=== PATIENT | male | born 1955 | race Caucasian/White ===

== ENCOUNTER 2021-05-31 20:27 | Inpatient (IN) | payer MEDICARE ==
[~2021-05-31] VITALS: Ht 180.3 cm; Wt 78.0 kg
[2021-05-31] VITALS (9 sets, daily range): BP systolic 92–123; BP diastolic 63–92
--- NOTE | 2021-05-31 20:25 | NUR ---
The patient, CARLOS CRAMER, 66 y/o, M admitted by MELLISA FARRIS MD, was given written information regarding hospital policies, unit procedures and contact persons. Valuables were checked and documented. poc explained to pt, pt verbalized understanding. call light in place will cont to monitor pt status and safety. pmrn
--- NOTE | 2021-05-31 21:43 | PDOC1 ---
History and Physical Date of Admission Date of Admission DATE: 05/31/21 TIME: 21:39 History of Present Illness History of Present Illness Gutierrez is a 66-year-old male transferred here from [facility]. he went to the ER there today with worsening nonproductive cough and swelling of his ankles and feet. he has not felt himslef for about 2 weeks, with worsening cough and weakness, He went to a new doctor 3 days ago and had a CXR. today, he noted LE swelling and his neck veins were bounding rapidly when he looked at himself. Afib RVR ntoed in ER, cardizem gtt started, lasix given, he feels a little better, less cough less dyspnea. and he feels his LE edema is better. still irreg tachy on CArdizem [address] scan was also done there and noted PE seen, tx dose lovenox given, he does smoke he does drink on a daily basis Past Medical History Cardiovascular: No pertinent hx Pulmonary: No pertinent hx GI: Constipation Heme/Onc: No pertinent hx Musculoskeletal: Other Rheumatologic: No pertinent hx Infectious disease: No pertinent hx Endocrine: No pertinent hx Dermatology: No pertinent hx Past Surgical History Past Surgical History: No pertinent history Family History Family History: Diabetes Social History Smoke: 2 packs per day ALCOHOL: heavy (2 24 oz malt liquor daily) Drugs: Marijuana Current Medications Current Medications Current Medications Metoprolol Tartrate (Lopressor Vial) 5 mg PRN Q5MIN PRN IVP TACHYCARDIA; Start 05/31/21 at 21:45; Status UNV Digoxin (Lanoxin) 250 mcg 1X ONCE IV ; Start 05/31/21 at 21:45; Stop 05/31/21 at 21:46; Status UNV Digoxin (Lanoxin) 125 mcg DAILY PO ; Start 06/01/21 at 09:00; Status UNV Enoxaparin Sodium (Lovenox Per Pharmacy Treatment Dosing) 1 each PRN DAILY PRN MC SEE COMMENTS; Start 05/31/21 at 21:45; Status UNV Nicotine (Nicoderm Cq 21mg) 1 patch PRN DAILY PRN TD SMOKING CESSATION; Start 05/31/21 at 21:45; Status UNV ROS General: YES: Fatigue; No: Chills, Night Sweats, Malaise, Appetite, Other PSYCHOLOGICAL ROS: No: Anxiety, Behavioral Disorder, Concentration difficultie, Decreased libido, Depression, Disorientation, Hallucinations, Hostility, Irritablity, Memory difficulties, Mood Swings, Obsessive thoughts, Physical abuse, Sexual abuse, Sleep disturbances, Suicidal ideation, Other Eyes: No Blurry vision, No Decreased vision, No Double vision, No Dry eyes, No Excessive tearing, No Eye Pain, No Itchy Eyes, No Loss of vision, No Photophobia, No Scotomata, No Uses contacts, No Uses glasses, No Other HEENT: YES: Heacaches; No: Visual Changes, Hearing change, Nasal congestion, Nasal discharge, Oral lesions, Sinus pain, Sore Throat, Epistaxis, Sneezing, Snoring, Tinnitus, Vertigo, Vocal changes, Other Respiratory: YES: Cough, Shortness of breath, SOB with excertion; No: Hemoptysis, Orthopnea, Pleuritic Pain, Sputum Changes, Stridor, Tachypnea, Wheezing, Other Cardiovascular: yes Chest Pain, yes Palpitations; No Orthopnea, No Paroxysmal Noc. Dyspnea, No Edema, No Lt Headedness, No Other Gastrointestinal: Yes Nausea; No Vomiting, No Abdominal Pain, No Diarrhea, No Constipation, No Melena, No Hematochezia, No Other Genitourinary: No Dysuria, No Frequency, No Incontinence, No Hematuria, No Retention, No Discharge, No Urgency, No Pain, No Flank Pain, No Other, No , No , No , No , No , No , No Neurological: No Behavorial Changes, No Bowel/Bladder ControlChng, No Confusion, No Dizziness, No Gait Disturbance, No Headaches, No Impaired Coord/balance, No Memory Loss, No Numbness/Tingling, No Seizures, No Speech Problems, No Tremors, No Visual Changes, No Weakness, No Other Skin: Yes Dry Skin Physical Exam General: Alert, Cooperative, mild distress HEENT: Atraumatic, Mucous membr. moist/pink Lungs: Normal air movement Heart: no murmurs, irregularly irregular (tachy) Abdomen: Normal bowel sounds, Soft Extremities: Other (1+ BLE edema, left a little worse, some dystrophic nails, + clubbing of toenails) Skin: No significant lesion Neuro: Normal speech, Sensation intact, Cranial nerves 3-12 NL Psych/Mental Status: Mental status NL, Mood NL Vitals Vitals Vital Signs Date Time Temp Pulse Resp B/P (MAP) Pulse Ox O2 Delivery O2 Flow Rate FiO2 05/31/21 21:00 98.7 139 21 111/87 (95) Nasal Cannula 2.0 98.7 Labs Labs WBC 6.1, HGB 15.8, plt 137 NA 143, K 3.5, Cl 106, C02 22, BUN 15, Cr 0.9, glucose 88 mag 1.8 VTE Prophylaxis Ordered VTE Prophylaxis Devices: No VTE Pharmacological Prophylaxi: Yes Assessment/Plan Assessment/Plan acute hypoxic respiratory failure acute diastolic CHF atrial fibrillation with RVR, cardizem gtt, stil tachy, will add Metoprolol IV and IV dig, po in the AM, consult CV acute pulmonary embolism, Lovenox tx started at [facility] replete K+ and Mag tobacco use disorder, patch is PRN Alcohol overuse, vitamins given Justifications for Admission Other Justification MELLISA FARRIS MD May 31, 2021 21:43
[2021-05-31] MEDS ORDERED: NICOTINE 21MG PATCH. TD PRN (21:45)
[2021-05-31] MEDS ORDERED: MAGNESIUM SULFATE 4GM 100 ML IV ONE (23:00)
[2021-05-31] MEDS ORDERED: POTASSIUM CHLORIDE 20 MEQ TABLET.ER. PO ONE (23:00)
[2021-05-31] MEDS ORDERED: IV NORMAL SALINE 500ML BAG 500 ML IV ONE (23:00)
[2021-05-31] MEDS ORDERED: THIAMINE INJ 100 MG in IV DEXTROSE 5% 50 ML IV ONE (23:00)
[2021-05-31] MEDS ORDERED: DIGOXIN IV 500 MCG/2 ML AMPUL. IV ONE (23:00)
[2021-05-31] MEDS ORDERED: ANTI-COAG MONITOR BY PHARMACY. MC PRN (23:15)
[2021-06-01] VITALS (22 sets, daily range): BP systolic 78–131; BP diastolic 58–102
[2021-06-01 06:21] LABS: BASO # 0.1 x10^3/uL (0.0-0.2); BASO % 1 % (0-3); EOS # 0.1 x10^3/uL (0.0-0.7); EOS % 1 % (0-3); HEMATOCRIT 42.5 % (39.0-53.0); HEMOGLOBIN 13.9 g/dL (13.0-17.5); LYMPH # 0.8 x10^3/uL (1.0-4.8); LYMPH % 12 % (24-48); MEAN CORPUSCULAR HEMOGLOBIN 32 pg (25-35); MEAN CORPUSCULAR HGB CONC 33 g/dL (31-37); MEAN CORPUSCULAR VOLUME 98 fL (79-100); MONO % 15 % (0-9); NEUT # 4.8 x10^3/uL (1.8-7.7); NEUT % 71 % (31-73); PLATELET COUNT 129 x10^3/uL (140-400); RED BLOOD COUNT 4.32 x10^6/uL (4.30-5.70); WHITE BLOOD COUNT 6.7 x10^3/uL (4.0-11.0)
[2021-06-01 07:12] LABS: PROTHROMBIN TIME PATIENT 15.1 SEC (11.7-14.0)
[2021-06-01 07:33] LABS: ALBUMIN 3.2 g/dL (3.4-5.0); ALBUMIN/GLOBULIN RATIO 1.1 (1.0-1.7); CALCIUM 7.8 mg/dL (8.5-10.1); CHOLESTEROL/HDL RATIO 2.6; CREATININE 0.8 mg/dL (0.7-1.3); POTASSIUM 4.3 mmol/L (3.5-5.1); TOTAL BILIRUBIN 1.7 mg/dL (0.2-1.0)
[2021-06-01] MEDS: ASCORBIC ACID 1,000 MG TABLET PO SCH (07:55)
[2021-06-01] MEDS: VITAMIN B12,B9,B6 COMPLEX 1 TABLET. PO SCH (07:55)
[2021-06-01] MEDS: DIGOXIN 125 MCG TABLET. PO SCH (07:57)
--- NOTE | 2021-06-01 08:54 | PDOC2 ---
MARLY SINGH INSTRUCTIONAL TECHNOLOGY INSTRUCTOR 06/01/21 0854: CARDIAC CONSULT DATE OF CONSULT Date of Consult DATE: 06/01/21 TIME: 08:53 REASON FOR CONSULT Reason for Consult: AFIB with RVR REFERRING PHYSICIAN Referring Physician: Dr. iSngh SOURCE Source: Chart review, Patient HISTORY OF PRESENT ILLNESS HISTORY OF PRESENT ILLNESS This is a 66 yo male who presented to [facility] secondary to persistent cough and development of LE edema. Patient reports shortness of breath and cough have been present for the last couple of weeks. Cough seems to be worse at night when he lay down. Has been waking up in the night with difficulty breathing. This has progressively worsened. In the last 3-4 days, he developed LE edema. Saw his PCP 3 days ago and had CXR conducted. Was not aware of these results. Patient continued to not feel well and noted seeing his heart beat in his neck veins yesterday morning, which concerned him and prompted his arrival to the ED. Was noted in AFIB with RVR, which prompted this consult. Was transferred to [facility] for further evaluation and treatment. No prior h/o AFIB. Does have history of lymphoma and has underwent chemo and radiation therapy. PAST MEDICAL HISTORY Cardiovascular: HTN GI: GERD Heme/Onc: Cancer, Other (Lymphoma ) Musculoskeletal: Osteoarthritis PAST SURGICAL HISTORY Past Surgical History: Other (vasectomy ) FAMILY HISTORY Family History: Hypertension SOCIAL HISTORY Smoke: 1 pack per day (1-2 PPD) ALCOHOL: heavy Drugs: Marijuana Lives: with Family CURRENT MEDICATIONS CURRENT MEDICATIONS Current Medications Medications (Trade) Dose Ordered Sig/Handy Route PRN Reason Start Time Stop Time Status Last Admin Dose Admin Digoxin (Lanoxin) 250 mcg 1X ONCE IV 05/31/21 23:00 05/31/21 23:01 DC 05/31/21 23:07 Digoxin (Lanoxin) 125 mcg DAILY PO 06/01/21 09:00 06/01/21 07:57 Magnesium Sulfate 100 ml @ 25 mls/hr 1X ONCE IV 05/31/21 23:00 06/01/21 02:59 DC 05/31/21 23:44 Potassium Chloride (Klor-Con) 40 meq 1X ONCE PO 05/31/21 23:00 05/31/21 23:01 DC 05/31/21 23:05 Diltiazem HCl 125 mg/Sodium Chloride 125 ml @ 5 mls/hr CONT PRN IV PER PROTOCOL 05/31/21 22:00 06/01/21 08:28 Thiamine HCl 100 mg/Dextrose 51 ml @ 102 mls/hr 1X ONCE IV 05/31/21 23:00 05/31/21 23:29 DC 05/31/21 23:56 Vitamin B Complex (Folbic Tablet) 1 tab DAILY PO 06/01/21 09:00 06/01/21 07:55 Ascorbic Acid (Vitamin C) 1,000 mg DAILY PO 06/01/21 09:00 06/01/21 07:55 Sodium Chloride 500 ml @ 500 mls/hr 1X ONCE IV 05/31/21 23:00 05/31/21 23:59 DC 05/31/21 23:00 Enoxaparin Sodium (Lovenox 80mg Syringe) 80 mg Q12HR SQ 06/01/21 00:00 06/01/21 07:56 Info (Anti-Coagulation Monitoring By Pharmacy) 1 each PRN DAILY PRN MC PER PROTOCOL 05/31/21 23:15 06/01/21 01:18 ALLERGIES ALLERGIES: Coded Allergies: No Known Allergies (Verified Allergy, Unknown, 05/31/21) ROS Review of System 14 point ROS conducted with pertinent positives noted above in hPI PHYSICAL EXAM General: Alert, Oriented X3, Cooperative, mild distress HEENT: Atraumatic Lungs: Other (diminished throughout) Heart: Other (IRRR; tele AFIB, rate intermittently elevated ) Abdomen: Soft Extremities: Other (1+ bilateral LE edema ) Skin: No significant lesion Neuro: Normal speech, Sensation intact Psych/Mental Status: Mental status NL, Mood NL MUSCULOSKELETAL: Osteoarthritic changes both hands VITALS/I&O VITALS/I&O: Vital Signs Date Time Temp Pulse Resp B/P (MAP) Pulse Ox O2 Delivery O2 Flow Rate FiO2 06/01/21 07:57 127 06/01/21 07:00 98.0 20 110/90 (97) 91 Nasal Cannula 4.0 98.0 I & O 05/31/21 05/31/21 06/01/21 15:00 23:00 07:00 Intake Total 1601 ml Output Total 600 ml Balance 1001 ml LABS Lab: Laboratory Tests Test 06/01/21 04:10 06/01/21 04:15 White Blood Count 6.7 x10^3/uL (4.0-11.0) Red Blood Count 4.32 x10^6/uL (4.30-5.70) Hemoglobin 13.9 g/dL (13.0-17.5) Hematocrit 42.5 % (39.0-53.0) Mean Corpuscular Volume 98 fL (79-100) Mean Corpuscular Hemoglobin 32 pg (25-35) Mean Corpuscular Hemoglobin Concent 33 g/dL (31-37) Red Cell Distribution Width 14.0 % (11.5-14.5) Platelet Count 129 x10^3/uL (140-400) L Neutrophils (%) (Auto) 71 % (31-73) Lymphocytes (%) (Auto) 12 % (24-48) L Monocytes (%) (Auto) 15 % (0-9) H Eosinophils (%) (Auto) 1 % (0-3) Basophils (%) (Auto) 1 % (0-3) Neutrophils # (Auto) 4.8 x10^3/uL (1.8-7.7) Lymphocytes # (Auto) 0.8 x10^3/uL (1.0-4.8) L Monocytes # (Auto) 1.0 x10^3/uL (0.0-1.1) Eosinophils # (Auto) 0.1 x10^3/uL (0.0-0.7) Basophils # (Auto) 0.1 x10^3/uL (0.0-0.2) Prothrombin Time 15.1 SEC (11.7-14.0) H Prothrombin Time INR 1.2 (0.8-1.1) H Sodium Level 144 mmol/L (136-145) Potassium Level 4.3 mmol/L (3.5-5.1) Chloride Level 108 mmol/L (98-107) H Carbon Dioxide Level 22 mmol/L (21-32) Anion Gap 14 (6-14) Blood Urea Nitrogen 11 mg/dL (8-26) Creatinine 0.8 mg/dL (0.7-1.3) Estimated GFR (Cockcroft-Gault) 97.0 BUN/Creatinine Ratio 14 (6-20) Glucose Level 99 mg/dL (70-99) Calcium Level 7.8 mg/dL (8.5-10.1) L Total Bilirubin 1.7 mg/dL (0.2-1.0) H Aspartate Amino Transferase (AST) 49 U/L (15-37) H Alanine Aminotransferase (ALT) 88 U/L (16-63) H Alkaline Phosphatase 85 U/L (46-116) Total Protein 6.0 g/dL (6.4-8.2) L Albumin 3.2 g/dL (3.4-5.0) L Albumin/Globulin Ratio 1.1 (1.0-1.7) Triglycerides Level 64 mg/dL (0-150) Cholesterol Level 125 mg/dL (0-200) LDL Cholesterol, Calculated 63 mg/dL (0-100) VLDL Cholesterol, Calculated 13 mg/dL (0-40) Non-HDL Cholesterol Calculated 76 mg/dL (0-129) HDL Cholesterol 49 mg/dL (40-60) Cholesterol/HDL Ratio 2.6 Laboratory Tests 06/01/21 04:10 Laboratory Tests 06/01/21 04:15 IMAGES IMAGES Chest CTA Date 05/31/21 1. Linear nonocclusive basilar right lower lobe pulmonary artery embolus, suspected to be a chronic embolus. No occlusive or large pulmonary artery emboli. 2. Moderate right and mild left pleural effusions with mild passive atelectasis and volume loss of the dependent lower lobes. 3. Adenopathy in the mediastinum, left lower neck and left axilla presumably representing the patient's lymphoma. 4. Paraseptal emphysema of the upper lobes. There is asymmetric right apical bullous emphysema, underlying this emphysema there is a linear triangular parenchymal density measuring 3 x 3 x 1 cm this could represent asymmetric scarring versus a scarlike lung adenocarcinoma. Separate there are small solid nodules at the lung bases measuring up to 4 mm in size. Consider further assess ment with PET imaging versus needle biopsy, secondarily [address] chest follow- up could be considered, for the right apical lesion. 5. 1 cm lytic lesion of the T11 thoracic vertebra is indeterminate. 6. Mild free fluid right upper quadrant abdomen. ASSESSMENT/PLAN ASSESSMENT/PLAN 1. New onset AFIB with RVR; on Cardizem gtt. Digoxin added 2. Acute on chronic CHF, with possible systolic dysfunction 3. Hypertension; low end on Cardizem gtt. 4. H/o lymphoma; s/p chemo/radiation 5. Abnormal CTA; evidence of PE, right lung nodule. pulmonary consulted 6. Elevated LFT's 7. Thrombocytopenia 8. ETOH misuse 9. Suspected COPD with long-standing h/o tobaccoism Recommendations TSH, Lipids Mild diuresis Echo to assess LV systolic function Start metoprolol for rate control Titrate off Cardizem gtt as able Continue full-dose anticoagulation therapy with Lovenox. Transition to NOAC upon discharge Outpatient ischemic evaluation Probable outpatient CV if patient remains in AFIB PRAVIN SANCHEZ MD 06/01/21 1524: CARDIAC CONSULT ASSESSMENT/PLAN ASSESSMENT/PLAN Patient seen and examined. Agree with DRY CLEANER HAND's assessment and plan. Atrial fibrillation, newly diagnosed, heart rate better controlled since admission. Titrate Cardizem off and start metoprolol for rate control. Continue Lovenox for now and change to Eliquis for stroke prophylaxis prior to discharge Acute on chronic probably diastolic heart failure better compensated Check 2D echo to assess LV systolic function Consider ischemic evaluation as an outpatient Thank you for your consultation MARLY SINGH APRN Jun 01, 2021 08:54 PRAVIN SANCHEZ MD Jun 01, 2021 15:24
[2021-06-01] MEDS ORDERED: FLU VACC QUAD 21-22 (6MOS+) PF 0.5 ML SYRINGE. VAX IM ONE (09:00)
[2021-06-01] MEDS: METOPROLOL TART IMMED RELEASE 25 MG TABLET. PO SCH ×2 (10:30→19:59)
--- NOTE | 2021-06-01 10:40 | NUR ---
NURSING PT OFFERED FLU VACCINE PER PROTOCOL, REFUSED. EDUCATION PROVIDED, PT MAINTAINED DELICNATION.
--- NOTE | 2021-06-01 12:00 | NUR ---
SS following for discharge planning. SS reviewed pt chart and discussed with pt RN. Pt is from home and is currently requiring oxygen at four liters nasal canula. Cardiology and Pulmonology consulted. ECHO ordered. SS will continue to follow for discharge planning.
--- NOTE | 2021-06-01 12:36 | PDOC ---
[employer] PROGRESS NOTE Date of Service DOS: DATE: 06/01/21 TIME: 12:23 Chief Complaint Chief Complaint Acute hypoxic respiratory failure Acute diastolic CHF Atrial fibrillation with RVR, cardizem gtt, stil tachy, will add Metoprolol IV and IV dig, po now Acute/chronic? pulmonary embolism, Lovenox tx started at [facility] Pleural effusion - IR consulted for thoracentesis, would prefer holding therapeutic anticoagulation for treatment replete K+ and Mag tobacco use disorder, patch is PRN Alcohol overuse, vitamins given Thrombocytopenia History of Present Illness History of Present Illness Mr Paredes is a 66 yo male w/ PMHx lymphoma s/o chemo, radiation who presented to [facility] in [place], [place] c/o persistent cough and development of LE edema. Reports associated orthopnea for the last 2 weeks. He noted seeing his right neck veins fluttering which concerned him and was noted in AFIB with RVR. Underwent CTPA concerning for right pleural effusion and acute possibly chronic pulmonary embolism nonocclusive right basilar pulmonary artery and mediastinal adenopathy and left lower neck and axilla as well as bilateral emphysema and 3 x 3 x 1 cm right apical density as well as small basilar nodules 4 mm and a 1 cm T11 thoracic vertebral potential lytic lesion and right upper quadrant free fluid. No clear signs of right heart strain. No prior h/o AFIB. Does have history of lymphoma and has underwent chemo and radiation therapy. Was given therapeutic Lovenox replace magnesium and transferred to [facility] for further care and pulmonology and cardiology consultation. 06/01: Seen bedside is dyspneic and tachycardic. Was transitioned off diltiazem gtt. to oral metoprolol and oral digoxin. Discussed with interventional radiology they would prefer to delay thoracentesis on right due to recent therapeutic Lovenox administration. Patient is wondering when he will be able to go home but notes he is very dyspneic with minimal exertion. Vitals/I&O Vitals/I&O: Vital Signs Date Time Temp Pulse Resp B/P (MAP) Pulse Ox O2 Delivery O2 Flow Rate FiO2 06/01/21 11:00 97.5 110 20 119/96 (104) 90 Nasal Cannula 4.0 97.5 I & O 05/31/21 05/31/21 06/01/21 15:00 23:00 07:00 Intake Total 1601 ml Output Total 600 ml Balance 1001 ml Physical Exam General: Alert, Cooperative, mild distress Abdomen: Normal bowel sounds, Soft Extremities: Other (1+ BLE edema, left a little worse, some dystrophic nails, + clubbing of toenails) Skin: No significant lesion Labs Labs: Laboratory Tests Test 06/01/21 04:10 06/01/21 04:15 White Blood Count 6.7 x10^3/uL (4.0-11.0) Red Blood Count 4.32 x10^6/uL (4.30-5.70) Hemoglobin 13.9 g/dL (13.0-17.5) Hematocrit 42.5 % (39.0-53.0) Mean Corpuscular Volume 98 fL (79-100) Mean Corpuscular Hemoglobin 32 pg (25-35) Mean Corpuscular Hemoglobin Concent 33 g/dL (31-37) Red Cell Distribution Width 14.0 % (11.5-14.5) Platelet Count 129 x10^3/uL (140-400) Neutrophils (%) (Auto) 71 % (31-73) Lymphocytes (%) (Auto) 12 % (24-48) Monocytes (%) (Auto) 15 % (0-9) Eosinophils (%) (Auto) 1 % (0-3) Basophils (%) (Auto) 1 % (0-3) Neutrophils # (Auto) 4.8 x10^3/uL (1.8-7.7) Lymphocytes # (Auto) 0.8 x10^3/uL (1.0-4.8) Monocytes # (Auto) 1.0 x10^3/uL (0.0-1.1) Eosinophils # (Auto) 0.1 x10^3/uL (0.0-0.7) Basophils # (Auto) 0.1 x10^3/uL (0.0-0.2) Prothrombin Time 15.1 SEC (11.7-14.0) Prothromb Time International Ratio 1.2 (0.8-1.1) Sodium Level 144 mmol/L (136-145) Potassium Level 4.3 mmol/L (3.5-5.1) Chloride Level 108 mmol/L (98-107) Carbon Dioxide Level 22 mmol/L (21-32) Anion Gap 14 (6-14) Blood Urea Nitrogen 11 mg/dL (8-26) Creatinine 0.8 mg/dL (0.7-1.3) Estimated GFR (Cockcroft-Gault) 97.0 BUN/Creatinine Ratio 14 (6-20) Glucose Level 99 mg/dL (70-99) Calcium Level 7.8 mg/dL (8.5-10.1) Total Bilirubin 1.7 mg/dL (0.2-1.0) Aspartate Amino Transf (AST/SGOT) 49 U/L (15-37) Alanine Aminotransferase (ALT/SGPT) 88 U/L (16-63) Alkaline Phosphatase 85 U/L (46-116) Total Protein 6.0 g/dL (6.4-8.2) Albumin 3.2 g/dL (3.4-5.0) Albumin/Globulin Ratio 1.1 (1.0-1.7) Triglycerides Level 64 mg/dL (0-150) Cholesterol Level 125 mg/dL (0-200) LDL Cholesterol, Calculated 63 mg/dL (0-100) VLDL Cholesterol, Calculated 13 mg/dL (0-40) Non-HDL Cholesterol Calculated 76 mg/dL (0-129) HDL Cholesterol 49 mg/dL (40-60) Cholesterol/HDL Ratio 2.6 Thyroid Stimulating Hormone (TSH) 2.984 uIU/mL (0.358-3.74) Comment Review of Relevant I have reviewed the following items jesse (where applicable) has been applied. Medications: Current Medications Medications (Trade) Dose Ordered Sig/Handy Route PRN Reason Start Time Stop Time Status Last Admin Dose Admin Digoxin (Lanoxin) 250 mcg 1X ONCE IV 05/31/21 23:00 05/31/21 23:01 DC 05/31/21 23:07 Digoxin (Lanoxin) 125 mcg DAILY PO 06/01/21 09:00 06/01/21 07:57 Magnesium Sulfate 100 ml @ 25 mls/hr 1X ONCE IV 05/31/21 23:00 06/01/21 02:59 DC 05/31/21 23:44 Potassium Chloride (Klor-Con) 40 meq 1X ONCE PO 05/31/21 23:00 05/31/21 23:01 DC 05/31/21 23:05 Diltiazem HCl 125 mg/Sodium Chloride 125 ml @ 5 mls/hr CONT PRN IV PER PROTOCOL 2/1/22 22:00 06/01/21 09:05 DC 06/01/21 08:28 Thiamine HCl 100 mg/Dextrose 51 ml @ 102 mls/hr 1X ONCE IV 05/31/21 23:00 05/31/21 23:29 DC 05/31/21 23:56 Vitamin B Complex (Folbic Tablet) 1 tab DAILY PO 06/01/21 09:00 06/01/21 07:55 Ascorbic Acid (Vitamin C) 1,000 mg DAILY PO 06/01/21 09:00 06/01/21 07:55 Sodium Chloride 500 ml @ 500 mls/hr 1X ONCE IV 05/31/21 23:00 05/31/21 23:59 DC 05/31/21 23:00 Enoxaparin Sodium (Lovenox 80mg Syringe) 80 mg Q12HR SQ 06/01/21 00:00 06/01/21 07:56 Info (Anti-Coagulation Monitoring By Pharmacy) 1 each PRN DAILY PRN MC PER PROTOCOL 05/31/21 23:15 06/01/21 01:18 Metoprolol Tartrate (Lopressor) 25 mg BID PO 06/01/21 10:00 06/01/21 10:30 Justifications for Admission Other Justification CLEMENTE BECKWITH MD Jun 01, 2021 12:36
[2021-06-01] MEDS ORDERED: FUROSEMIDE 40 MG/4 ML VIAL. IVP ONE (13:00)
[2021-06-01] MEDS ORDERED: METOPROLOL IV PUSH 5 MG/5 ML VIAL. IVP ONE (13:00)
--- NOTE | 2021-06-01 14:01 | PDOC ---
PULMONARY PROGRESS NOTES DATE: 06/01/21 TIME: 13:59 Vitals Vital Signs Date Time Temp Pulse Resp B/P (MAP) Pulse Ox O2 Delivery O2 Flow Rate FiO2 06/01/21 13:03 110 119/96 06/01/21 11:00 97.5 20 90 Nasal Cannula 4.0 97.5 Labs Laboratory Tests Test 06/01/21 04:10 06/01/21 04:15 White Blood Count 6.7 x10^3/uL (4.0-11.0) Red Blood Count 4.32 x10^6/uL (4.30-5.70) Hemoglobin 13.9 g/dL (13.0-17.5) Hematocrit 42.5 % (39.0-53.0) Mean Corpuscular Volume 98 fL (79-100) Mean Corpuscular Hemoglobin 32 pg (25-35) Mean Corpuscular Hemoglobin Concent 33 g/dL (31-37) Red Cell Distribution Width 14.0 % (11.5-14.5) Platelet Count 129 x10^3/uL (140-400) Neutrophils (%) (Auto) 71 % (31-73) Lymphocytes (%) (Auto) 12 % (24-48) Monocytes (%) (Auto) 15 % (0-9) Eosinophils (%) (Auto) 1 % (0-3) Basophils (%) (Auto) 1 % (0-3) Neutrophils # (Auto) 4.8 x10^3/uL (1.8-7.7) Lymphocytes # (Auto) 0.8 x10^3/uL (1.0-4.8) Monocytes # (Auto) 1.0 x10^3/uL (0.0-1.1) Eosinophils # (Auto) 0.1 x10^3/uL (0.0-0.7) Basophils # (Auto) 0.1 x10^3/uL (0.0-0.2) Prothrombin Time 15.1 SEC (11.7-14.0) Prothromb Time International Ratio 1.2 (0.8-1.1) Sodium Level 144 mmol/L (136-145) Potassium Level 4.3 mmol/L (3.5-5.1) Chloride Level 108 mmol/L (98-107) Carbon Dioxide Level 22 mmol/L (21-32) Anion Gap 14 (6-14) Blood Urea Nitrogen 11 mg/dL (8-26) Creatinine 0.8 mg/dL (0.7-1.3) Estimated GFR (Cockcroft-Gault) 97.0 BUN/Creatinine Ratio 14 (6-20) Glucose Level 99 mg/dL (70-99) Calcium Level 7.8 mg/dL (8.5-10.1) Total Bilirubin 1.7 mg/dL (0.2-1.0) Aspartate Amino Transf (AST/SGOT) 49 U/L (15-37) Alanine Aminotransferase (ALT/SGPT) 88 U/L (16-63) Alkaline Phosphatase 85 U/L (46-116) Total Protein 6.0 g/dL (6.4-8.2) Albumin 3.2 g/dL (3.4-5.0) Albumin/Globulin Ratio 1.1 (1.0-1.7) Triglycerides Level 64 mg/dL (0-150) Cholesterol Level 125 mg/dL (0-200) LDL Cholesterol, Calculated 63 mg/dL (0-100) VLDL Cholesterol, Calculated 13 mg/dL (0-40) Non-HDL Cholesterol Calculated 76 mg/dL (0-129) HDL Cholesterol 49 mg/dL (40-60) Cholesterol/HDL Ratio 2.6 Thyroid Stimulating Hormone (TSH) 2.984 uIU/mL (0.358-3.74) Laboratory Tests Test 06/01/21 04:10 06/01/21 04:15 White Blood Count 6.7 x10^3/uL (4.0-11.0) Red Blood Count 4.32 x10^6/uL (4.30-5.70) Hemoglobin 13.9 g/dL (13.0-17.5) Hematocrit 42.5 % (39.0-53.0) Mean Corpuscular Volume 98 fL (79-100) Mean Corpuscular Hemoglobin 32 pg (25-35) Mean Corpuscular Hemoglobin Concent 33 g/dL (31-37) Red Cell Distribution Width 14.0 % (11.5-14.5) Platelet Count 129 x10^3/uL (140-400) Neutrophils (%) (Auto) 71 % (31-73) Lymphocytes (%) (Auto) 12 % (24-48) Monocytes (%) (Auto) 15 % (0-9) Eosinophils (%) (Auto) 1 % (0-3) Basophils (%) (Auto) 1 % (0-3) Neutrophils # (Auto) 4.8 x10^3/uL (1.8-7.7) Lymphocytes # (Auto) 0.8 x10^3/uL (1.0-4.8) Monocytes # (Auto) 1.0 x10^3/uL (0.0-1.1) Eosinophils # (Auto) 0.1 x10^3/uL (0.0-0.7) Basophils # (Auto) 0.1 x10^3/uL (0.0-0.2) Prothrombin Time 15.1 SEC (11.7-14.0) Prothromb Time International Ratio 1.2 (0.8-1.1) Sodium Level 144 mmol/L (136-145) Potassium Level 4.3 mmol/L (3.5-5.1) Chloride Level 108 mmol/L (98-107) Carbon Dioxide Level 22 mmol/L (21-32) Anion Gap 14 (6-14) Blood Urea Nitrogen 11 mg/dL (8-26) Creatinine 0.8 mg/dL (0.7-1.3) Estimated GFR (Cockcroft-Gault) 97.0 BUN/Creatinine Ratio 14 (6-20) Glucose Level 99 mg/dL (70-99) Calcium Level 7.8 mg/dL (8.5-10.1) Total Bilirubin 1.7 mg/dL (0.2-1.0) Aspartate Amino Transf (AST/SGOT) 49 U/L (15-37) Alanine Aminotransferase (ALT/SGPT) 88 U/L (16-63) Alkaline Phosphatase 85 U/L (46-116) Total Protein 6.0 g/dL (6.4-8.2) Albumin 3.2 g/dL (3.4-5.0) Albumin/Globulin Ratio 1.1 (1.0-1.7) Triglycerides Level 64 mg/dL (0-150) Cholesterol Level 125 mg/dL (0-200) LDL Cholesterol, Calculated 63 mg/dL (0-100) VLDL Cholesterol, Calculated 13 mg/dL (0-40) Non-HDL Cholesterol Calculated 76 mg/dL (0-129) HDL Cholesterol 49 mg/dL (40-60) Cholesterol/HDL Ratio 2.6 Thyroid Stimulating Hormone (TSH) 2.984 uIU/mL (0.358-3.74) Impression . Full consult dictated hypoxemic respiratory failure multifactorial, acute exacerbation of COPD, A. fib with rapid ventricular response Possible diastolic heart failure Abnormal CT chest Proceed with thoracentesis Repeat CT chest as an outpatient, possible PET as an outpatient KARYNA BURT MD Jun 01, 2021 14:01
[2021-06-01] MEDS ORDERED: HEPARIN for IV BOLUS 10,000 UNIT/10 ML VIAL. IV PRN ×2 (15:30)
[2021-06-01] MEDS: HEPARIN 25,000UTS/250ML PREMIX 250 ML IV PRN (16:06)
--- NOTE | 2021-06-01 16:25 | NUR ---
NURSING HEPARIN GTT STARTER PER PHYSICIAN ORDER. DR BECKWITH SAID PT DID NOT NEED BOLUS, JUST TO START AT RECOMMENDED DOSE. SO, BOLUS HELD, STARTED AT 16U/KG/HR, OR 13.2 ML/HR.
--- NOTE | 2021-06-01 19:54 | CONS ---
DATE OF CONSULTATION: 06/01/2021 ATTENDING PHYSICIAN: Dr. Essie Singh. REASON FOR CONSULTATION: The patient is seen in Pulmonary consultation at the request of Dr. Singh for abnormal CT chest. HISTORY OF PRESENT ILLNESS: The patient is a 66-year-old that presented with increasing shortness of breath over the last 24 hours. It has been ongoing now for 2 weeks. He saw his PCP. The patient presented with mainly tachycardia, felt like he had heart racing. He was found to have AFib with rapid ventricular response. He was initially seen at [facility]. He underwent CT angiogram, which revealed a nonocclusive chronic clot in the right side. There was bilateral effusions, right greater than left. He had several nodules along with an ill-defined opacity in the right upper lobe. There were also some emphysematous changes. The patient continues to smoke. He wears no oxygen at home. He is using metered dose inhaler. Denies hemoptysis, fever, chills, night sweats. He is vaccinated for COVID-19. PAST MEDICAL HISTORY: Hypertension, gastroesophageal reflux, lymphoma, osteoarthritis, tobacco dependent and COPD, unknown FEV1. PAST SURGICAL HISTORY: Vasectomy. 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 He is currently smoking daily. He smokes marijuana. REVIEW OF SYSTEMS: As indicated above, otherwise a 10-point system was reviewed and negative. CURRENT MEDICATIONS: List was reviewed. He was given IV Cardizem. He is currently requiring digoxin, thiamine, Lovenox 80 q. 12, lorazepam p.r.n., metoprolol p.r.n. He is currently not on steroids. ALLERGIES: No known drug allergies. PHYSICAL EXAMINATION: GENERAL: The patient appeared to be older than stated age. VITAL SIGNS: Stable. O2 saturation currently on 4 liters 95%. HEENT: Eyes: The sclerae were nonicteric. NECK: Jugular venous distention was not elevated. No lymphadenopathy. CHEST: Full expansion. LUNGS: Poor airway flow with expiratory wheeze. CARDIOVASCULAR: Regular rate and rhythm with S1, S2. No S3. ABDOMEN: Soft. EXTREMITIES: No clubbing, cyanosis, 1+ edema. NEUROLOGIC: The patient was awake, alert, following commands. A detailed neuro exam was not performed. LABORATORY DATA: Reviewed. Electrolytes were noted. BUN and creatinine were normal. AST and ALT were elevated. White count was normal. CT chest was reviewed, obtained at [facility]. There were several findings. There was a nonocclusive clot in the right lower lobe artery. There were bilateral effusions, right greater than left, mediastinal adenopathy. There was a left lower neck adenopathy and left axilla adenopathy, paraseptal emphysema. There was asymmetrical right apical bullous emphysematous change along with a parenchymal density. IMPRESSION: 1. Acute hypoxemic respiratory failure, multifactorial. 2. Acute exacerbation of chronic obstructive pulmonary disease. 3. Atrial fibrillation with rapid ventricular response. 4. Acute, suspected, diastolic heart failure. 5. Abnormal CT chest, revealing several findings as indicated above. 6. Linear triangular parenchymal density in the right upper lobe. 7. Multiple pulmonary nodules. 8. Adenopathy in the mediastinum, left lower neck and axilla, patient with previous history of lymphoma. 9. Abnormal liver function tests. PLAN: 1. Recommend thoracentesis. 2. Treat acute exacerbation of COPD with steroids, no need for antibiotics. 3. Nebulized treatments. 4. Follow Cardiology input. 5. Repeat CT chest in 2-3 months. 6. The patient instructed on the importance of discontinuing tobacco use. 7. Discontinue alcohol and marijuana. I do appreciate the privilege in sharing in the patient's care. JESUS DR: Ankit TID: [id number]
[2021-06-02] VITALS (10 sets, daily range): BP systolic 92–143; BP diastolic 75–90
[2021-06-02] MEDS: VITAMIN B12,B9,B6 COMPLEX 1 TABLET. PO SCH (07:39)
[2021-06-02] MEDS: DIGOXIN 125 MCG TABLET. PO SCH (07:39)
[2021-06-02] MEDS: ASCORBIC ACID 1,000 MG TABLET PO SCH (07:40)
[2021-06-02] MEDS: METOPROLOL TART IMMED RELEASE 25 MG TABLET. PO SCH (07:40)
[2021-06-02] MEDS: HEPARIN 25,000UTS/250ML PREMIX 250 ML IV PRN (07:41)
[2021-06-02] MEDS: METOPROLOL IV PUSH 5 MG/5 ML VIAL. IVP PRN ×3 (08:14→10:12)
--- NOTE | 2021-06-02 08:16 | PDOC ---
[employer] PROGRESS NOTE Date of Service DOS: DATE: 06/02/21 TIME: 08:11 Chief Complaint Chief Complaint Acute hypoxic respiratory failure Acute diastolic CHF Atrial fibrillation with RVR, cardizem gtt, stil tachy, will add Metoprolol IV and IV dig, po now Acute/chronic? pulmonary embolism, Lovenox tx started at [facility] Pleural effusion - IR consulted for thoracentesis, would prefer holding therapeutic anticoagulation for treatment replete K+ and Mag tobacco use disorder, patch is PRN Alcohol overuse, vitamins given Thrombocytopenia History of Present Illness History of Present Illness Mr Paredes is a 66 yo male w/ PMHx lymphoma s/o chemo, radiation who presented to [facility] in [place], [place] c/o persistent cough and development of LE edema. Reports associated orthopnea for the last 2 weeks. He noted seeing his right neck veins fluttering which concerned him and was noted in AFIB with RVR. Underwent CTPA concerning for right pleural effusion and acute possibly chronic pulmonary embolism nonocclusive right basilar pulmonary artery and mediastinal adenopathy and left lower neck and axilla as well as bilateral emphysema and 3 x 3 x 1 cm right apical density as well as small basilar nodules 4 mm and a 1 cm T11 thoracic vertebral potential lytic lesion and right upper quadrant free fluid. No clear signs of right heart strain. No prior h/o AFIB. Does have history of lymphoma and has underwent chemo and radiation therapy. Was given therapeutic Lovenox replace magnesium and transferred to [facility] for further care and pulmonology and cardiology consultation. 2/2: Seen bedside is dyspneic and tachycardic. Was transitioned off diltiazem gtt. to oral metoprolol and oral digoxin. Discussed with interventional radiology they would prefer to delay thoracentesis on right due to recent therapeutic Lovenox administration. Patient is wondering when he will be able to go home but notes he is very dyspneic with minimal exertion. 2/3: Overnight became more tachycardic. Still feeling short of breath. Orthopnea. On heparin gtt. plans for thoracentesis today. 5 metoprolol x1 now Vitals/I&O Vitals/I&O: Vital Signs Date Time Temp Pulse Resp B/P (MAP) Pulse Ox O2 Delivery O2 Flow Rate FiO2 06/02/21 07:40 144 111/90 06/02/21 07:35 97.6 20 91 Nasal Cannula 3.0 97.6 I & O 06/01/21 06/01/21 06/02/21 15:00 23:00 07:00 Intake Total 420 ml 100 ml Output Total 200 ml 400 ml 250 ml Balance 220 ml -300 ml -250 ml Physical Exam General: Alert, Oriented X3, Cooperative, mild distress Heart: Other Abdomen: Soft Extremities: Other Skin: No significant lesion Labs Labs: Laboratory Tests Test 06/01/21 21:55 06/02/21 05:00 Heparin Anti-Xa Act, Unfractionated 0.88 IU/mL (0.30-0.70) 0.41 IU/mL (0.30-0.70) Comment Review of Relevant I have reviewed the following items jesse (where applicable) has been applied. Medications: Current Medications Medications (Trade) Dose Ordered Sig/Handy Route PRN Reason Start Time Stop Time Status Last Admin Dose Admin Digoxin (Lanoxin) 125 mcg DAILY PO 06/01/21 09:00 06/02/21 07:39 Vitamin B Complex (Folbic Tablet) 1 tab DAILY PO 06/01/21 09:00 06/02/21 07:39 Ascorbic Acid (Vitamin C) 1,000 mg DAILY PO 06/01/21 09:00 06/02/21 07:40 Metoprolol Tartrate (Lopressor) 25 mg BID PO 06/01/21 10:00 06/02/21 07:40 Metoprolol Tartrate (Lopressor Vial) 5 mg 1X ONCE IVP 06/01/21 13:00 06/01/21 13:01 DC 06/01/21 13:03 Furosemide (Lasix) 40 mg 1X ONCE IVP 06/01/21 13:00 06/01/21 13:01 DC 06/01/21 13:02 Heparin Sodium/ Dextrose 250 ml @ 13.248 mls/ hr CONT PRN IV PER PROTOCOL 06/01/21 15:30 06/02/21 07:41 Justifications for Admission Other Justification CLEMENTE BECKWITH MD Jun 02, 2021 08:16
--- NOTE | 2021-06-02 09:30 | PDOC ---
PULMONARY PROGRESS NOTES DATE: 06/02/21 TIME: 09:29 Subjective PT FEELS BETTER LESS SOA Vitals Vital Signs Date Time Temp Pulse Resp B/P (MAP) Pulse Ox O2 Delivery O2 Flow Rate FiO2 06/02/21 08:35 140 120/93 06/02/21 07:35 97.6 20 91 Nasal Cannula 3.0 97.6 ROS: No Nausea, No Chest Pain, No Abdominal Pain, No Increase Cough Lungs: Wheezing Cardiovascular: S1 Abdomen: Soft, Non-tender Neuro Exam: Alert Extremities: No Edema Skin: Warm Labs Laboratory Tests Test 06/01/21 04:10 06/01/21 04:15 06/01/21 21:55 06/02/21 05:00 White Blood Count 6.7 x10^3/uL (4.0-11.0) Red Blood Count 4.32 x10^6/uL (4.30-5.70) Hemoglobin 13.9 g/dL (13.0-17.5) Hematocrit 42.5 % (39.0-53.0) Mean Corpuscular Volume 98 fL (79-100) Mean Corpuscular Hemoglobin 32 pg (25-35) Mean Corpuscular Hemoglobin Concent 33 g/dL (31-37) Red Cell Distribution Width 14.0 % (11.5-14.5) Platelet Count 129 x10^3/uL (140-400) Neutrophils (%) (Auto) 71 % (31-73) Lymphocytes (%) (Auto) 12 % (24-48) Monocytes (%) (Auto) 15 % (0-9) Eosinophils (%) (Auto) 1 % (0-3) Basophils (%) (Auto) 1 % (0-3) Neutrophils # (Auto) 4.8 x10^3/uL (1.8-7.7) Lymphocytes # (Auto) 0.8 x10^3/uL (1.0-4.8) Monocytes # (Auto) 1.0 x10^3/uL (0.0-1.1) Eosinophils # (Auto) 0.1 x10^3/uL (0.0-0.7) Basophils # (Auto) 0.1 x10^3/uL (0.0-0.2) Prothrombin Time 15.1 SEC (11.7-14.0) Prothromb Time International Ratio 1.2 (0.8-1.1) Sodium Level 144 mmol/L (136-145) Potassium Level 4.3 mmol/L (3.5-5.1) Chloride Level 108 mmol/L (98-107) Carbon Dioxide Level 22 mmol/L (21-32) Anion Gap 14 (6-14) Blood Urea Nitrogen 11 mg/dL (8-26) Creatinine 0.8 mg/dL (0.7-1.3) Estimated GFR (Cockcroft-Gault) 97.0 BUN/Creatinine Ratio 14 (6-20) Glucose Level 99 mg/dL (70-99) Calcium Level 7.8 mg/dL (8.5-10.1) Total Bilirubin 1.7 mg/dL (0.2-1.0) Aspartate Amino Transf (AST/SGOT) 49 U/L (15-37) Alanine Aminotransferase (ALT/SGPT) 88 U/L (16-63) Alkaline Phosphatase 85 U/L (46-116) Total Protein 6.0 g/dL (6.4-8.2) Albumin 3.2 g/dL (3.4-5.0) Albumin/Globulin Ratio 1.1 (1.0-1.7) Triglycerides Level 64 mg/dL (0-150) Cholesterol Level 125 mg/dL (0-200) LDL Cholesterol, Calculated 63 mg/dL (0-100) VLDL Cholesterol, Calculated 13 mg/dL (0-40) Non-HDL Cholesterol Calculated 76 mg/dL (0-129) HDL Cholesterol 49 mg/dL (40-60) Cholesterol/HDL Ratio 2.6 Thyroid Stimulating Hormone (TSH) 2.984 uIU/mL (0.358-3.74) Heparin Anti-Xa Act, Unfractionated 0.88 IU/mL (0.30-0.70) 0.41 IU/mL (0.30-0.70) Laboratory Tests Test 06/01/21 21:55 06/02/21 05:00 Heparin Anti-Xa Act, Unfractionated 0.88 IU/mL (0.30-0.70) 0.41 IU/mL (0.30-0.70) Impression . IMPRESSION: 1. Acute hypoxemic respiratory failure, multifactorial. 2. Acute exacerbation of chronic obstructive pulmonary disease. 3. Atrial fibrillation with rapid ventricular response. 4. Acute, suspected, diastolic heart failure. 5. Abnormal CT chest, revealing several findings as indicated above. 6. Linear triangular parenchymal density in the right upper lobe. 7. Multiple pulmonary nodules. 8. Adenopathy in the mediastinum, left lower neck and axilla, patient with previous history of lymphoma. 9. Abnormal liver function tests. Plan . FOLLOW UP ON PLEURAL FLUID CONTINUE THE SAME D/W REPEAT CT IN 3 MO PT IMPROVING PLAN: 1. Recommend thoracentesis. 2. Treat acute exacerbation of COPD with steroids, no need for antibiotics. 3. Nebulized treatments. 4. Follow Cardiology input. 5. Repeat CT chest in 2-3 months. 6. The patient instructed on the importance of discontinuing tobacco use. 7. Discontinue alcohol and marijuana. I do appreciate the privilege in sharing in the patient's care. KARYNA BURT MD Jun 02, 2021 09:29
--- NOTE | 2021-06-02 10:11 | PDOC ---
MARLY SINGH FAMILY INDEPENDENCE CASE MANAGER 06/02/21 1011: CARDIO Progress Notes Date and Time Date of Service 06/02/21 Time of Evaluation 1000 Subjective Subjective: No Chest Pain, Other (SOA improved ) Vitals Vitals Vital Signs Date Time Temp Pulse Resp B/P (MAP) Pulse Ox O2 Delivery O2 Flow Rate FiO2 06/02/21 08:35 140 120/93 06/02/21 07:35 97.6 20 91 Nasal Cannula 3.0 97.6 Weight Weight [ ] Input and Output Intake and Output Intake and Output 06/02/21 07:00 Intake Total 520 ml Output Total 850 ml Balance -330 ml Intake Oral 520 ml Output Urine Total 850 ml Laboratory Labs Laboratory Tests Test 06/01/21 21:55 06/02/21 05:00 Heparin Anti-Xa Act, Unfractionated 0.88 IU/mL (0.30-0.70) 0.41 IU/mL (0.30-0.70) Physical Exam HEENT: Neck Supple W Full Motion Chest: Symmetric LUNGS: Other (diminished ) Heart: irregularly irregular (AFIB, rate remains uncontrolled ) Abdomen: Soft N/T Extremities: Other (1+ bilateral LE edema ) Neurology: alert, oriented, follow commands Assessment Assessment 1. New onset AFIB with RVR; on metoprolol, digoxin for rate controlled. Received multiple doses of IV lopressor PRN. Rate remains uncontrolled 2. Acute on chronic systolic CHF; improved with diuresis. Echo shows cardiomyopathy with severe LV dysfunction. EF 30% 3. Acute respiratory failure; multifactorial with a/c CHF, AFIB with RVR, pleural effusion, and AECOPD. plans for thoracentesis today 4. Hypertension; controlled 5. H/o lymphoma; s/p chemo/radiation 6. Abnormal CTA; evidence of PE, right lung nodule. as per pulmonary 7. Elevated LFT's, mild 8. Thrombocytopenia 9. ETOH misuse 10. Suspected COPD with long-standing h/o tobaccoism Recommendations Continue metoprolol Will given additional dose of IV Dig now. If rate remains uncontrolled, with start amiodarone gtt and will plan for ADAMS guide CV tomorrow Monitor LFTs Resume anticoagulation therapy with heparin gtt s/p thoracentesis. Transition to Eliquis upon discharge Lasix therapy Convert metoprolol to Toprol Add ARB Given findings of significant LV dysfunction, recommend ischemic evaluation with cardiac catheterization. R/b/a discussed and patient and he is agreeable. NPO p MN Supportive care Justicifation of Admission Dx: Justifications for Admission: Justification of Admission Dx: Yes CHF: Cardiac Arrhythmias Comments: Cardiomyopathy, AFIB with RVR Acute on chronic systolic CHF PRAVIN SANCHEZ MD 06/02/211: CARDIO Progress Notes Assessment Assessment Patient seen and examined. Agree with TRAINING PROFESSIONAL's assessment and plan. Atrial fibrillation, newly diagnosed, heart rate better controlled since admission. Continue metoprolol for rate control. Continue Lovenox for now and change to Eliquis for stroke prophylaxis prior to discharge Acute on chronic probably diastolic heart failure better compensated 2D echo showed LVEF 30% Plan cardiac cath and [facility] CVn tomorrow Risks and benefits explained MARLY SINGH APRN Jun 02, 2021 10:11 PRAVIN SANCHEZ MD Jun 02, 2021 21:41
[2021-06-02] MEDS ORDERED: DIGOXIN IV 500 MCG/2 ML AMPUL. IV ONE (11:00)
--- NOTE | 2021-06-02 12:03 | NUR ---
SS following up with discharge planning. SS reviewed pt chart and discussed with pt RN. Pt is currently requiring oxygen at three liters nasal canula. Cardiology and Pulmonology following. Heparin drip. Thoracentesis today. SS will continue to follow for discharge planning.
--- NOTE | 2021-06-02 12:35 | CARD ---
MR#: [id number] Date of Study: 06/01/2021 Ordering Physician: MARLY SINGH, Referring Physician: MARLY SINGH, Tech: Yumiko Hooks, [facility] APPROVED REPORT EXAM: Two-dimensional and M-mode echocardiogram with Doppler and color Doppler. Other Information Quality : AverageHR: 143bpm Technically limited study due to Rapid heart rate INDICATION Atrial Fibrillation Congestive Heart Failure RISK FACTORS Hypertension Smoking 2D DIMENSIONS Left Atrium(2D)4.3 (1.6-4.0cm)IVSd1.0 (0.7-1.1cm) Aortic Root(2D)3.3 (2.0-3.7cm)LVDd5.1 (3.9-5.9cm) LVOT Diameter2.1 (1.8-2.4cm)PWd0.9 (0.7-1.1cm) LVDs3.3 (2.5-4.0cm)FS (%) 34.7 % SV77.0 mlLVEF(%)63.6 (>50%) Aortic Valve AoV Peak Kevin.107.3cm/sAoV VTI16.5cm AO Peak GR.4.6mmHgLVOT VTI 10.81cm AO Mean GR.3mmHg Mitral Valve MV E Kffcnbdv805.4cm/sMV DECEL [id number] MV A Imenpdjr81.6cm/sE/A Ratio2.8 TDI Lateral E' P. V4.70cm/sMedial E' P. V13.45cm/s E/Lateral E'25.0E/Medial E'8.7 Tricuspid Valve TR P. [id number]/sRAP [id number] TR Peak Gr.[id number] LEFT VENTRICLE The left ventricle is normal size. There is normal left ventricular wall thickness. The left ventricu lar systolic function is moderately to severely impaired. The Ejection Fraction is 30%. Diastology in determinate due to atrial fibrillation. RIGHT VENTRICLE The right ventricle is mildly dilated. There is normal right ventricular wall thickness. Systolic fun ction is mildly to moderately reduced. ATRIA The left atrium is borderline dilated. The right atrium is mildly dilated. The interatrial septum is intact with no evidence for an atrial septal defect or patent foramen ovale as noted on 2-D or Dopple r imaging. AORTIC VALVE The aortic valve is normal in structure and function. Doppler and Color Flow revealed no significant aortic regurgitation. There is no significant aortic valvular stenosis. Calculated aortic valve area is 2.62 cm2 with maximum pressure gradient of 5 mmHg and mean pressure gradient of 3 mmHg. MITRAL VALVE The mitral valve is normal in structure and function. There is no evidence of mitral valve prolapse. There is no mitral valve stenosis. Doppler and Color-flow revealed trace to mild mitral regurgitation . TRICUSPID VALVE The tricuspid valve is normal in structure and function. Doppler and Color Flow revealed moderate tri cuspid regurgitation with an estimated PAP of 44 mmHg. There is no tricuspid valve stenosis. PULMONIC VALVE The pulmonary valve is normal in structure and function. Doppler and Color Flow revealed trace pulmon ic valvular regurgitation. GREAT VESSELS The aortic root is normal in size. The IVC is dilated. PERICARDIAL EFFUSION There is no evidence of significant pericardial effusion. Critical Notification Critical Value: No <Conclusion> The left ventricular systolic function is moderately to severely impaired. The Ejection Fraction is 30%. Trace to mild mitral regurgitation. Moderate tricuspid regurgitation with an estimated PAP of 44 mmHg. There is no evidence of significant pericardial effusion. Signed by : Farrukh Wills, Electronically Approved : 06/02/2021 12:35:12
[2021-06-02] MEDS ORDERED: BENZOCAINE ONE 20% MUCOSAL SPRAY. MM (13:00)
[2021-06-02] MEDS ORDERED: LIDOCAINE 2% TOPICAL JELLY 5GM TUBE. TP ONE (13:00)
[2021-06-02] MEDS ORDERED: 0.9 % SODIUM CHLORIDE 10 ML DISP.SYRIN. IV PRN (13:00)
[2021-06-02] MEDS ORDERED: AMIODARONE 150 MG in IV DEXTROSE 5% 100ML 100 ML IV ONE (13:00)
[2021-06-02] MEDS ORDERED: LIDOCAINE 2% VISCOUS 15 ML SOLUTION. MM ONE (13:00)
[2021-06-02] MEDS: LOSARTAN POTASSIUM 25 MG TABLET. PO SCH (14:00)
[2021-06-02] MEDS: AMIODARONE 450 MG in IV DEXTROSE 5% 250 ML IV PRN ×2 (14:45→22:13)
[2021-06-02] MEDS: FUROSEMIDE 40 MG TABLET. PO SCH (15:08)
--- NOTE | 2021-06-02 15:19 | RAD ---
Right Thoracentesis 06/02/2021 1:51 PM Clinical History: Right pleural effusion. Technique: Relative benefits risks and alternatives were discussed with the patient and/or their rep resentative. Written informed consent was obtained. The patient was placed in seated position. A danielle eout procedure was performed. Sonographic assessment demonstrates a large pleural effusion. A site for skin entry was selected, and subsequently prepped and draped using sterile barrier technique. 1% lidocaine without epinepherine was administered for local anesthesia to the skin and subcutaenous tissues. A 5 Mohawk sheathed needle was passed into the pleural space. Clear yellow fluid was aspirated and t he catheter was connected to a vacuum. Approximately 1.5 liters of fluid were drained. The catheter w as removed and adequate hemostasis was obtained. A sterile dressing was applied. The patient tolerat ed the procedure well, without complications. Impression: Successful ultrasound guided thoracentesis with removal of1.5 liters of fluid. Electronically signed by: Joshua Verdugo MD (06/02/2021 3:17 PM) [id number]
[2021-06-02] MEDS ORDERED: METOPROLOL TART IMMED RELEASE 25 MG TABLET. PO SCH (21:00)
[2021-06-03] VITALS (12 sets, daily range): BP systolic 75–111; BP diastolic 51–90
[2021-06-03] MEDS ORDERED: IV NORMAL SALINE 500ML BAG 500 ML IV ONE (02:00)
--- NOTE | 2021-06-03 02:04 | NUR ---
PT BP 82/70, P-116, 85/72, P-112, 75/68, P-106 DR ELIZABETH NOTIFIED, ORDER GIVEN TO BOLUS WITH NS 500CC, IN HALF HOUR IF BP REMAINS LOW START DOPAMINE DO NOT TITRATE, CONT AMIODARONE GTT. WILL CONT TO MONITOR PT STATUS AND SAFETY. PMRN
[2021-06-03 04:08] LABS: BASO % 1 % (0-3); EOS % 1 % (0-3); HEMATOCRIT 43.7 % (39.0-53.0); HEMOGLOBIN 14.4 g/dL (13.0-17.5); LYMPH # 0.8 x10^3/uL (1.0-4.8); LYMPH % 11 % (24-48); MEAN CORPUSCULAR HEMOGLOBIN 32 pg (25-35); MEAN CORPUSCULAR HGB CONC 33 g/dL (31-37); MEAN CORPUSCULAR VOLUME 98 fL (79-100); MONO # 1.1 x10^3/uL (0.0-1.1); MONO % 14 % (0-9); NEUT % 75 % (31-73); PLATELET COUNT 118 x10^3/uL (140-400); RED BLOOD COUNT 4.45 x10^6/uL (4.30-5.70); RED CELL DISTRIBUTION WIDTH 14.1 % (11.5-14.5)
[2021-06-03 05:03] LABS: ALBUMIN 2.9 g/dL (3.4-5.0); ALBUMIN/GLOBULIN RATIO 0.9 (1.0-1.7); CALCIUM 7.5 mg/dL (8.5-10.1); CREATININE 0.8 mg/dL (0.7-1.3); POTASSIUM 3.5 mmol/L (3.5-5.1); TOTAL BILIRUBIN 1.9 mg/dL (0.2-1.0)
[2021-06-03] MEDS ORDERED: HYDROmorphone 2 MG/ML INJ. IVP PRN (06:00)
[2021-06-03] MEDS ORDERED: fentaNYL PF VIAL 100 MCG/2 ML VIAL IVP PRN ×2 (06:00)
[2021-06-03] MEDS ORDERED: IV RINGERS,LACTATED 1000ML 1,000 ML IV SCH (06:00)
[2021-06-03] MEDS ORDERED: MORPHINE SULFATE 2 MG/ML INJ. IVP PRN (06:00)
[2021-06-03] MEDS ORDERED: PROCHLORPERAZINE 10 MG/2 ML VIAL. IVP PRN (06:00)
[2021-06-03] MEDS: HEPARIN 25,000UTS/250ML PREMIX 250 ML IV PRN (06:30)
[2021-06-03] MEDS ORDERED: IOHEXOL 300 MG/ML 100ML VIAL. ONE (07:36)
[2021-06-03] MEDS ORDERED: LIDOCAINE 1% PF 2 ML VIAL. ONE (07:36)
--- NOTE | 2021-06-03 08:26 | PDOC ---
PULMONARY PROGRESS NOTES DATE: 06/03/21 TIME: 08:25 Subjective PT FEELS BETTER LESS SOA Vitals Vital Signs Date Time Temp Pulse Resp B/P (MAP) Pulse Ox O2 Delivery O2 Flow Rate FiO2 06/03/21 06:30 120 110/90 (97) 06/03/21 02:29 98.3 20 94 Nasal Cannula 4.0 98.3 ROS: No Nausea, No Chest Pain, No Abdominal Pain, No Increase Cough Lungs: Wheezing Cardiovascular: S1 Abdomen: Soft, Non-tender Neuro Exam: Alert Extremities: No Edema Skin: Warm Labs Laboratory Tests Test 06/01/21 21:55 06/02/21 05:00 06/02/21 10:50 06/02/21 13:50 Heparin Anti-Xa Act, Unfractionated 0.88 IU/mL (0.30-0.70) 0.41 IU/mL (0.30-0.70) 0.12 IU/mL (0.30-0.70) Body Fluid pH 7.55 Test 06/02/21 20:30 06/03/21 03:50 Heparin Anti-Xa Act, Unfractionated 0.21 IU/mL (0.30-0.70) 0.32 IU/mL (0.30-0.70) White Blood Count 8.0 x10^3/uL (4.0-11.0) Red Blood Count 4.45 x10^6/uL (4.30-5.70) Hemoglobin 14.4 g/dL (13.0-17.5) Hematocrit 43.7 % (39.0-53.0) Mean Corpuscular Volume 98 fL (79-100) Mean Corpuscular Hemoglobin 32 pg (25-35) Mean Corpuscular Hemoglobin Concent 33 g/dL (31-37) Red Cell Distribution Width 14.1 % (11.5-14.5) Platelet Count 118 x10^3/uL (140-400) Neutrophils (%) (Auto) 75 % (31-73) Lymphocytes (%) (Auto) 11 % (24-48) Monocytes (%) (Auto) 14 % (0-9) Eosinophils (%) (Auto) 1 % (0-3) Basophils (%) (Auto) 1 % (0-3) Neutrophils # (Auto) 6.0 x10^3/uL (1.8-7.7) Lymphocytes # (Auto) 0.8 x10^3/uL (1.0-4.8) Monocytes # (Auto) 1.1 x10^3/uL (0.0-1.1) Eosinophils # (Auto) 0.0 x10^3/uL (0.0-0.7) Basophils # (Auto) 0.0 x10^3/uL (0.0-0.2) Sodium Level 136 mmol/L (136-145) Potassium Level 3.5 mmol/L (3.5-5.1) Chloride Level 105 mmol/L (98-107) Carbon Dioxide Level 26 mmol/L (21-32) Anion Gap 5 (6-14) Blood Urea Nitrogen 15 mg/dL (8-26) Creatinine 0.8 mg/dL (0.7-1.3) Estimated GFR (Cockcroft-Gault) 97.0 BUN/Creatinine Ratio 19 (6-20) Glucose Level 123 mg/dL (70-99) Calcium Level 7.5 mg/dL (8.5-10.1) Total Bilirubin 1.9 mg/dL (0.2-1.0) Aspartate Amino Transf (AST/SGOT) 33 U/L (15-37) Alanine Aminotransferase (ALT/SGPT) 59 U/L (16-63) Alkaline Phosphatase 85 U/L (46-116) Total Protein 6.0 g/dL (6.4-8.2) Albumin 2.9 g/dL (3.4-5.0) Albumin/Globulin Ratio 0.9 (1.0-1.7) Laboratory Tests Test 06/02/21 10:50 06/02/21 13:50 06/02/21 20:30 06/03/21 03:50 Heparin Anti-Xa Act, Unfractionated 0.12 IU/mL (0.30-0.70) 0.21 IU/mL (0.30-0.70) 0.32 IU/mL (0.30-0.70) Body Fluid pH 7.55 White Blood Count 8.0 x10^3/uL (4.0-11.0) Red Blood Count 4.45 x10^6/uL (4.30-5.70) Hemoglobin 14.4 g/dL (13.0-17.5) Hematocrit 43.7 % (39.0-53.0) Mean Corpuscular Volume 98 fL (79-100) Mean Corpuscular Hemoglobin 32 pg (25-35) Mean Corpuscular Hemoglobin Concent 33 g/dL (31-37) Red Cell Distribution Width 14.1 % (11.5-14.5) Platelet Count 118 x10^3/uL (140-400) Neutrophils (%) (Auto) 75 % (31-73) Lymphocytes (%) (Auto) 11 % (24-48) Monocytes (%) (Auto) 14 % (0-9) Eosinophils (%) (Auto) 1 % (0-3) Basophils (%) (Auto) 1 % (0-3) Neutrophils # (Auto) 6.0 x10^3/uL (1.8-7.7) Lymphocytes # (Auto) 0.8 x10^3/uL (1.0-4.8) Monocytes # (Auto) 1.1 x10^3/uL (0.0-1.1) Eosinophils # (Auto) 0.0 x10^3/uL (0.0-0.7) Basophils # (Auto) 0.0 x10^3/uL (0.0-0.2) Sodium Level 136 mmol/L (136-145) Potassium Level 3.5 mmol/L (3.5-5.1) Chloride Level 105 mmol/L (98-107) Carbon Dioxide Level 26 mmol/L (21-32) Anion Gap 5 (6-14) Blood Urea Nitrogen 15 mg/dL (8-26) Creatinine 0.8 mg/dL (0.7-1.3) Estimated GFR (Cockcroft-Gault) 97.0 BUN/Creatinine Ratio 19 (6-20) Glucose Level 123 mg/dL (70-99) Calcium Level 7.5 mg/dL (8.5-10.1) Total Bilirubin 1.9 mg/dL (0.2-1.0) Aspartate Amino Transf (AST/SGOT) 33 U/L (15-37) Alanine Aminotransferase (ALT/SGPT) 59 U/L (16-63) Alkaline Phosphatase 85 U/L (46-116) Total Protein 6.0 g/dL (6.4-8.2) Albumin 2.9 g/dL (3.4-5.0) Albumin/Globulin Ratio 0.9 (1.0-1.7) Impression . IMPRESSION: 1. Acute hypoxemic respiratory failure, multifactorial. 2. Acute exacerbation of chronic obstructive pulmonary disease. 3. Atrial fibrillation with rapid ventricular response. Status post cardioversion 4. Acute, suspected, diastolic heart failure. Combination with systolic heart failure 5. Abnormal CT chest, revealing several findings as indicated above. 6. Linear triangular parenchymal density in the right upper lobe. 7. Multiple pulmonary nodules. 8. Adenopathy in the mediastinum, left lower neck and axilla, patient with previous history of lymphoma. 9. Abnormal liver function tests. 10. Transudate of effusion <Conclusion> The left ventricular systolic function is moderately diminished. The ejection fraction is 35%. Mild mitral regurgitation. Mild tricuspid regurgitation. There is no evidence of significant pericardial effusion. No intracardiac thrombus noted. Patient subsequently underwent successful external cardioversion, reported separately. Conclusions: Successful [facility] guided cardioversion of atrial fibrillation to sinus rhythm. Plan . Updated 06/03 Appreciate cardiology input Transudate of effusion, diuresis per cardiology Repeat CT chest in 2 to 3 months Continue empiric antibiotics and steroids DC tobacco or marijuana marijuana KARYNA BURT MD Jun 03, 2021 08:26
[2021-06-03] MEDS: LOSARTAN POTASSIUM 25 MG TABLET. PO SCH (08:38)
[2021-06-03] MEDS: ASCORBIC ACID 1,000 MG TABLET PO SCH (08:38)
[2021-06-03] MEDS: VITAMIN B12,B9,B6 COMPLEX 1 TABLET. PO SCH (08:38)
[2021-06-03] MEDS: DIGOXIN 125 MCG TABLET. PO SCH (08:39)
[2021-06-03] MEDS ORDERED: METOPROLOL SUCC 24HR ER 100 MG TAB.ER.24H. PO SCH (09:00)
[2021-06-03] MEDS ORDERED: NITROGLYCERIN 200 MCG/2 ML SYRINGE FOR CATH/VASC LAB. ONE (09:43)
[2021-06-03] MEDS ORDERED: VERAPAMIL 5 MG/2 ML VIAL. ONE (09:43)
[2021-06-03] MEDS ORDERED: fentaNYL PF VIAL 100 MCG/2 ML VIAL ONE (09:43)
[2021-06-03] MEDS ORDERED: HEPARIN for IV BOLUS 10,000 UNIT/10 ML VIAL. ONE (09:43)
[2021-06-03] MEDS ORDERED: MIDAZOLAM HCL/PF 2 MG/2 ML VIAL. ONE (09:43)
--- NOTE | 2021-06-03 10:32 | PDOC ---
MODERATE SEDATION ASSESSMENT RISKS/ALTERNATIVES Risks/Alternatives Risks and alternatives of this type of sedation and procedure discussed with: RISK/ALTERNATIVES: Patient H & P ON CHART H & P H & P on chart and reviewed for co-morbid conditions and appropriate labs. H&P ON CHART: Yes STATUS PREG STATUS ASSESSED: N/A MEDS/ALLERGIES REVIEWED Meds/Allergies Reviewed Medications and Allergies including time and route of recently administered narcotics and sedatives. MEDS/ALLERGIES REVIEWED: Yes ASA RATING ASA RATING: II AIRWAY ASSESSMENT Airway Assessment Airway patency, oral function limitations, presence of caps, crowns, dentures, partials, and ability to extend neck assessed. AIRWAY ASSESSMENT: Yes MALLAMPATI SCORE MALLAMPATI SCORE: II PRE-SEDATION ASSESSMENT PRE-SEDATION ASSESSMENT: Yes PRAVIN SANCHEZ MD Jun 03, 2021 10:32
[2021-06-03] MEDS ORDERED: BENZOCAINE ONE 20% MUCOSAL SPRAY. (10:37)
[2021-06-03] MEDS ORDERED: LIDOCAINE 1% PF 2 ML VIAL. INJ ONE (10:45)
[2021-06-03] MEDS ORDERED: NITROGLYCERIN 200 MCG/2 ML SYRINGE FOR CATH/VASC LAB. IART ONE (10:45)
[2021-06-03] MEDS ORDERED: BENZOCAINE ONE 20% MUCOSAL SPRAY. MM ×2 (10:45→11:00)
[2021-06-03] MEDS ORDERED: HEPARIN for IV BOLUS 10,000 UNIT/10 ML VIAL. IART ONE (10:45)
[2021-06-03] MEDS ORDERED: IOHEXOL 300 MG/ML 100ML VIAL. IART ONE (10:45)
[2021-06-03] MEDS ORDERED: MIDAZOLAM HCL/PF 2 MG/2 ML VIAL. IV ONE (10:45)
[2021-06-03] MEDS ORDERED: VERAPAMIL 5 MG/2 ML VIAL. IART ONE (10:45)
[2021-06-03] MEDS ORDERED: fentaNYL PF VIAL 100 MCG/2 ML VIAL IV ONE (10:45)
[2021-06-03] MEDS ORDERED: LIDOCAINE 2% TOPICAL JELLY 5GM TUBE. TP ONE (11:00)
[2021-06-03] MEDS ORDERED: LIDOCAINE 2% VISCOUS 15 ML SOLUTION. MM ONE (11:00)
[2021-06-03] MEDS ORDERED: CONTRAST GIVEN. MC PRN (11:00)
--- NOTE | 2021-06-03 11:38 | PDOC4 ---
Procedure Note Procedure: [facility] guided cardioversion Indications: Atrial fibrillation with difficult to control rapid ventricular rate Complications: None Procedural Details: An informed consent was obtained from patient. Anesthesiology team administered intravenous propofol for deep sedation. A transesophageal echocardiogram probe was inserted and standard tomographic images were obtained. Intracardiac throm bus was ruled out. Patient was then given 200 J of synchronized biphasic DC shock therapy with successful conversion of patient rhythm from atrial fibrillation to sinus rhythm. He was hemodynamically stable without any neurological deficit at the end of procedure. He tolerated the procedure well. Conclusions: Successful [facility] guided cardioversion of atrial fibrillation to sinus rhythm. PRAVIN SANCHEZ MD Jun 03, 2021 11:38
--- NOTE | 2021-06-03 11:42 | CARD ---
MR#: [id number] Date of Study: 06/03/2021 Ordering Physician: MARLY SINGH, Referring Physician: MARLY SINGH, Tech: Marianela Gardner APPROVED REPORT Technologist: Marianela Gardner Nurse: Irene Harrison RN Procedure(s) performed: Left heart catheterization and selective coronary angiography via right trans radial approach Heart Failure Class 4 fl time: 2.6 min dose: 36 gycm2 contrast: 62 ml moderate sedation: 20 MINS INDICATION The indication(s) include : Cardiomyopathy, acute on chronic systolic heart failure. [facility] Clinical Frailty Scale [facility] Clinical Frailty Scale: Mildly Frail Heart Failure Heart Failure: Yes If Yes, Newly Diagnosed: No If Yes, HF Type: Systolic CASE TECHNIQUE IV conscious sedation was used throughout procedure with appropriate monitoring and was performed in the presence of a registered nurse who was an independent trained observer other than the physician p erforming the procedure. During this case, Fluoroscopy and low osmolar contrast were used for imaging . Specimen(s) Removed: No Estimated Blood loss: 15 cc's. PROCEDURE NARRATIVE After explaining the risks, benefits and alternative options, informed consent was obtained from danny ent. Patient was brought to the cardiac Test Rack Operator and right wrist was prepped and draped in the usual fashion after confirming a positive modified Jhoan's test. Arterial access was obtained in the righ t radial artery and a 6 Albanian sheath was inserted. 6 Albanian Raul catheter was used to perform kb ective angiography of the left and right coronary arteries. LVEDP and transaortic gradients were scot sured. Left ventriculography was not performed since recent 2D echo showed LVEF 30%. Patient tolera marcia the procedure well. Hemostasis was achieved using TR band. There were no immediate complication s. The following findings were noted. FINDINGS 1. Hemodynamics: Left ventricular end-diastolic pressure of 9 mmHg. No pullback gradient across the aortic valve. 2. Left ventriculography: Normal left ventricle systolic function with ejection fraction estimated at 60%. No significant mitral regurgitation seen. 3. Coronary angiography: a. The left main coronary artery arose from the left sinus of Valsalva, was very short, gave rise to the left anterior descending and left circumflex arteries and did not show any significant stenosis. b. The left anterior descending artery did not show any significant stenosis. c. The left circumflex artery did not show any significant stenosis. d. The right coronary artery was a large and dominant vessel arising from the right sinus of Valsalv a that did not show any significant stenosis. Conclusion No significant coronary artery disease Recommendations Optimization of medical therapy for nonischemic cardiomyopathy, probably tachycardia mediated and rep eat 2D echo in 3 months. Signed by : Farrukh Wills, Electronically Approved : 06/03/2021 11:41:49
--- NOTE | 2021-06-03 11:47 | CARD ---
MR#: [id number] Date of Study: 06/03/2021 Ordering Physician: MARLY SINGH, Referring Physician: MARLY SINGH, Tech: Linda Sherman [facility] APPROVED REPORT EXAM: Transesophageal echocardiogram with color flow Doppler and Synchronized Cardioversion. INDICATION Atrial Fibrillation RISK FACTORS Hypertension Smoking Reason For Test : Rule out Intracardiac Thrombus. PROCEDURE Type of Sedation : General Anesthesia Sedation was administered by Anesthesia Dept. Sedation was achieved with Propofol 120 intravenously. Transesophageal probe was inserted and advanced into esophagus by Farrukh Wills MD. The [facility] was performed without complications. Throughout the procedure, the blood pressure, pulse oximetry, cardiac rhythm, and rate were monitored . LEFT VENTRICLE The left ventricle is normal size. There is normal left ventricular wall thickness. The left ventricu lar systolic function is moderately diminished. The ejection fraction is 35%. RIGHT VENTRICLE The right ventricle is normal size. There is normal right ventricular wall thickness. The right ventr icular systolic function is normal. ATRIA The left atrium is mildly dilated. The right atrium is mildly dilated. The interatrial septum is inta ct with no evidence for an atrial septal defect or patent foramen ovale as noted on 2-D or Doppler im aging. There is no thrombus noted in the left atrial appendage. AORTIC VALVE The aortic valve is normal in structure and function. Doppler and Color Flow revealed no significant aortic regurgitation. There is no significant aortic valvular stenosis. MITRAL VALVE The mitral valve is normal in structure and function. There is no evidence of mitral valve prolapse. There is no mitral valve stenosis. Doppler and Color-flow revealed mild mitral regurgitation. TRICUSPID VALVE The tricuspid valve is normal in structure and function. Doppler and Color Flow revealed mild tricusp id regurgitation. There is no tricuspid valve stenosis. PULMONIC VALVE The pulmonary valve is normal in structure and function. Doppler and Color Flow revealed trace pulmon ic valvular regurgitation. GREAT VESSELS The aortic root is normal in size. The ascending aorta is normal in size. PERICARDIAL EFFUSION There is no evidence of significant pericardial effusion. There is no pleural effusion. Critical Notification Critical Value: No <Conclusion> The left ventricular systolic function is moderately diminished. The ejection fraction is 35%. Mild mitral regurgitation. Mild tricuspid regurgitation. There is no evidence of significant pericardial effusion. No intracardiac thrombus noted. Patient subsequently underwent successful external cardioversion, reported separately. Signed by : Farrukh Wills, Electronically Approved : 06/03/2021 11:47:06
--- NOTE | 2021-06-03 12:02 | PDOC ---
[employer] PROGRESS NOTE Date of Service DOS: DATE: 06/03/21 TIME: 12:00 Chief Complaint Chief Complaint Acute hypoxic respiratory failure Acute diastolic CHF Atrial fibrillation with RVR, cardizem gtt, stil tachy, will add Metoprolol IV and IV dig, po now Acute/chronic? pulmonary embolism, Lovenox tx started at [facility] Pleural effusion - IR consulted for thoracentesis, would prefer holding therapeutic anticoagulation for treatment replete K+ and Mag tobacco use disorder, patch is PRN Alcohol overuse, vitamins given Thrombocytopenia History of Present Illness History of Present Illness Mr Paredes is a 66 yo male w/ PMHx lymphoma s/o chemo, radiation who presented to [facility] in [place], [place] c/o persistent cough and development of LE edema. Reports associated orthopnea for the last 2 weeks. He noted seeing his right neck veins fluttering which concerned him and was noted in AFIB with RVR. Underwent CTPA concerning for right pleural effusion and acute possibly chronic pulmonary embolism nonocclusive right basilar pulmonary artery and mediastinal adenopathy and left lower neck and axilla as well as bilateral emphysema and 3 x 3 x 1 cm right apical density as well as small basilar nodules 4 mm and a 1 cm T11 thoracic vertebral potential lytic lesion and right upper quadrant free fluid. No clear signs of right heart strain. No prior h/o AFIB. Does have history of lymphoma and has underwent chemo and radiation therapy. Was given therapeutic Lovenox replace magnesium and transferred to [facility] for further care and pulmonology and cardiology consultation. 2/2: Seen bedside is dyspneic and tachycardic. Was transitioned off diltiazem gtt. to oral metoprolol and oral digoxin. Discussed with interventional radiology they would prefer to delay thoracentesis on right due to recent therapeutic Lovenox administration. Patient is wondering when he will be able to go home but notes he is very dyspneic with minimal exertion. 2/3: Overnight became more tachycardic. Still feeling short of breath. Orthopnea. On heparin gtt. 1.5L thoracentesis today. 5 metoprolol x1 now 2/4: [place] relief after throat thoracentesis for several hours but when he laid down became very tachycardic and hypotensive now on dopamine gtt. started on amiodarone. To [facility] for cardioversion Vitals/I&O Vitals/I&O: Vital Signs Date Time Temp Pulse Resp B/P (MAP) Pulse Ox O2 Delivery O2 Flow Rate FiO2 06/03/21 11:45 Nasal Cannula 2 06/03/21 11:40 98 16 120/84 96 06/03/21 11:11 98.8 98.8 I & O 06/02/21 06/02/21 06/03/21 15:00 23:00 07:00 Intake Total 300 ml 0 ml Output Total 1200 ml 200 ml 150 ml Balance -900 ml -200 ml -150 ml Physical Exam General: Alert, Oriented X3, Cooperative, mild distress Heart: Other Lungs: Wheezing Abdomen: Soft Extremities: Other Skin: No significant lesion Labs Labs: Laboratory Tests Test 06/02/21 13:50 06/02/21 20:30 06/03/21 03:50 06/03/21 09:40 Body Fluid pH 7.55 Heparin Anti-Xa Act, Unfractionated 0.21 IU/mL (0.30-0.70) 0.32 IU/mL (0.30-0.70) 0.37 IU/mL (0.30-0.70) White Blood Count 8.0 x10^3/uL (4.0-11.0) Red Blood Count 4.45 x10^6/uL (4.30-5.70) Hemoglobin 14.4 g/dL (13.0-17.5) Hematocrit 43.7 % (39.0-53.0) Mean Corpuscular Volume 98 fL (79-100) Mean Corpuscular Hemoglobin 32 pg (25-35) Mean Corpuscular Hemoglobin Concent 33 g/dL (31-37) Red Cell Distribution Width 14.1 % (11.5-14.5) Platelet Count 118 x10^3/uL (140-400) Neutrophils (%) (Auto) 75 % (31-73) Lymphocytes (%) (Auto) 11 % (24-48) Monocytes (%) (Auto) 14 % (0-9) Eosinophils (%) (Auto) 1 % (0-3) Basophils (%) (Auto) 1 % (0-3) Neutrophils # (Auto) 6.0 x10^3/uL (1.8-7.7) Lymphocytes # (Auto) 0.8 x10^3/uL (1.0-4.8) Monocytes # (Auto) 1.1 x10^3/uL (0.0-1.1) Eosinophils # (Auto) 0.0 x10^3/uL (0.0-0.7) Basophils # (Auto) 0.0 x10^3/uL (0.0-0.2) Sodium Level 136 mmol/L (136-145) Potassium Level 3.5 mmol/L (3.5-5.1) Chloride Level 105 mmol/L (98-107) Carbon Dioxide Level 26 mmol/L (21-32) Anion Gap 5 (6-14) Blood Urea Nitrogen 15 mg/dL (8-26) Creatinine 0.8 mg/dL (0.7-1.3) Estimated GFR (Cockcroft-Gault) 97.0 BUN/Creatinine Ratio 19 (6-20) Glucose Level 123 mg/dL (70-99) Calcium Level 7.5 mg/dL (8.5-10.1) Total Bilirubin 1.9 mg/dL (0.2-1.0) Aspartate Amino Transf (AST/SGOT) 33 U/L (15-37) Alanine Aminotransferase (ALT/SGPT) 59 U/L (16-63) Alkaline Phosphatase 85 U/L (46-116) Total Protein 6.0 g/dL (6.4-8.2) Albumin 2.9 g/dL (3.4-5.0) Albumin/Globulin Ratio 0.9 (1.0-1.7) Comment Review of Relevant I have reviewed the following items jesse (where applicable) has been applied. Medications: Current Medications Medications (Trade) Dose Ordered Sig/Handy Route PRN Reason Start Time Stop Time Status Last Admin Dose Admin Amiodarone HCl 150 mg/Dextrose 103 ml @ 600 mls/hr 1X ONCE IV 06/02/21 13:00 06/02/21 13:17 DC 06/02/21 14:35 Amiodarone HCl 450 mg/Dextrose 259 ml @ 0 mls/hr CONT PRN IV SEE I/O RECORD 06/02/21 13:00 06/03/21 12:59 06/02/21 22:13 Metoprolol Tartrate (Lopressor) 50 mg BID PO 06/02/21 21:00 06/02/21 21:01 DC 06/02/21 21:00 Losartan Potassium (Cozaar) 25 mg DAILY PO 06/02/21 14:00 06/03/21 08:38 Furosemide (Lasix) 40 mg DAILY PO 06/02/21 14:00 06/02/21 15:08 Lidocaine HCl (Xylocaine 2% Topical 5gm Tube) 1 paulie 1X ONCE TP 06/03/21 11:00 06/03/21 11:01 DC 06/03/21 10:40 Sodium Chloride 500 ml @ 500 mls/hr 1X ONCE IV 06/03/21 02:00 06/03/21 02:59 DC 06/03/21 02:03 Dopamine HCl/ Dextrose 250 ml @ 15.244 mls/ hr CONT PRN IV SEE I/O RECORD 06/03/21 02:30 06/03/21 06:21 Nitroglycerin (Nitroglycerin) 200 mcg 1X ONCE IART 06/03/21 10:45 06/03/21 10:51 DC 06/03/21 10:15 Verapamil HCl (Verapamil) 2.5 mg 1X ONCE IART 06/03/21 10:45 06/03/21 10:51 DC 06/03/21 10:15 Heparin Sodium (Porcine) (Heparin Sodium) 2,500 unit 1X ONCE IART 06/03/21 10:45 06/03/21 10:51 DC 06/03/21 10:15 Heparin Sodium/ Sodium Chloride (HEPARIN for ARTERIAL LINE FLUSH) 1,000 unit 1X ONCE IART 06/03/21 10:45 06/03/21 10:51 DC 06/03/21 10:30 Midazolam HCl (Versed) 2 mg 1X ONCE IV 06/03/21 10:45 06/03/21 10:51 DC 06/03/21 10:15 Fentanyl Citrate (Fentanyl 2ml Vial) 50 mcg 1X ONCE IV 06/03/21 10:45 06/03/21 10:51 DC 06/03/21 10:15 Iohexol (Omnipaque 300 Mg/ml) 62 ml 1X ONCE IART 06/03/21 10:45 06/03/21 10:51 DC 06/03/21 10:35 Lidocaine HCl (Xylocaine-Mpf 1% 2ml Vial) 1 ml 1X ONCE INJ 06/03/21 10:45 06/03/21 10:51 DC 06/03/21 10:15 Benzocaine (Hurricaine One) 1 spray 1X ONCE MM 06/03/21 10:45 06/03/21 10:47 DC 06/03/21 10:40 Justifications for Admission Other Justification CLEMENTE BECKWITH MD Jun 03, 2021 12:02
--- NOTE | 2021-06-03 12:10 | NUR ---
SS following up with discharge planning. SS reviewed pt chart and discussed with pt RN. Pt is currently requiring oxygen at four liters nasal canula. Cardiology and Pulmonology following. Pt had [facility] today. Discharge plan is currently to home when medically ready for discharge. SS will continue to follow for discharge planning.
[2021-06-03] MEDS: FUROSEMIDE 40 MG TABLET. PO SCH (12:44)
[2021-06-03] MEDS: METOPROLOL TART IMMED RELEASE 50 MG TABLET. PO SCH (12:45)
[2021-06-03] MEDS: APIXABAN 5 MG TABLET. PO SCH ×2 (12:45→20:23)
[2021-06-03] MEDS: AMIODARONE HCL 200 MG TABLET. PO SCH (12:45)
[2021-06-04 03:10] VITALS: BP 97/66
[2021-06-04] MEDS: DIGOXIN 125 MCG TABLET. PO SCH (06:03)
[2021-06-04] MEDS: METOPROLOL IV PUSH 5 MG/5 ML VIAL. IVP PRN (06:03)
--- NOTE | 2021-06-04 06:15 | NUR ---
pt. had a coughing spell and heart rate became irregular and afib on the monitor. IV metoprolol given and digoxin PO given with a blood pressure of 113/70.
[2021-06-04 07:00] VITALS: BP 106/94
[2021-06-04] MEDS: FUROSEMIDE 40 MG TABLET. PO SCH (08:34)
[2021-06-04] MEDS: ASCORBIC ACID 1,000 MG TABLET PO SCH (08:34)
[2021-06-04] MEDS: APIXABAN 5 MG TABLET. PO SCH ×2 (08:34→20:58)
[2021-06-04] MEDS: VITAMIN B12,B9,B6 COMPLEX 1 TABLET. PO SCH (08:34)
[2021-06-04] MEDS: METOPROLOL TART IMMED RELEASE 50 MG TABLET. PO SCH (08:35)
[2021-06-04] MEDS: LOSARTAN POTASSIUM 25 MG TABLET. PO SCH (08:36)
[2021-06-04] MEDS: AMIODARONE HCL 200 MG TABLET. PO SCH (08:36)
[2021-06-04 10:35] VITALS: BP 93/74
[2021-06-04] MEDS ORDERED: METOPROLOL SUCC 24HR ER 50 MG TAB.ER.24H. PO SCH (11:00)
--- NOTE | 2021-06-04 11:18 | PDOC ---
[employer] PROGRESS NOTE Date of Service DOS: DATE: 06/04/21 TIME: 11:16 Chief Complaint Chief Complaint Acute hypoxic respiratory failure Acute diastolic CHF Atrial fibrillation with RVR, cardizem gtt, stil tachy, will add Metoprolol IV and IV dig, po now Acute/chronic? pulmonary embolism, Lovenox tx started at [place] Pleural effusion - IR consulted for thoracentesis, would prefer holding therapeutic anticoagulation for treatment replete K+ and Mag tobacco use disorder, patch is PRN Alcohol overuse, vitamins given Thrombocytopenia History of Present Illness History of Present Illness Mr Paredes is a 66 yo male w/ PMHx lymphoma s/o chemo, radiation who presented to [facility] in [place], [place] c/o persistent cough and development of LE edema. Reports associated orthopnea for the last 2 weeks. He noted seeing his right neck veins fluttering which concerned him and was noted in AFIB with RVR. Underwent CTPA concerning for right pleural effusion and acute possibly chronic pulmonary embolism nonocclusive right basilar pulmonary artery and mediastinal adenopathy and left lower neck and axilla as well as bilateral emphysema and 3 x 3 x 1 cm right apical density as well as small basilar nodules 4 mm and a 1 cm T11 thoracic vertebral potential lytic lesion and right upper quadrant free fluid. No clear signs of right heart strain. No prior h/o AFIB. Does have history of lymphoma and has underwent chemo and radiation therapy. Was given therapeutic Lovenox replace magnesium and transferred to [facility] for further care and pulmonology and cardiology consultation. 2/2: Seen bedside is dyspneic and tachycardic. Was transitioned off diltiazem gtt. to oral metoprolol and oral digoxin. Discussed with interventional radiology they would prefer to delay thoracentesis on right due to recent therapeutic Lovenox administration. Patient is wondering when he will be able to go home but notes he is very dyspneic with minimal exertion. 2/3: Overnight became more tachycardic. Still feeling short of breath. Orthopnea. On heparin gtt. 1.5L thoracentesis today. 5 metoprolol x1 now 2/4: [place] relief after throat thoracentesis for several hours but when he laid down became tachy and hypotensive now on dopamine gtt. started on amiodarone. To [facility] for cardioversion 06/04: Sinus overnight. Had paroxysmal coughing fit this morning and a rapid heart rate in the 150s given IV metoprolol and digoxin now in the 90s 100s looks like he is going in and out of A. fib. Toprol was changed yesterday getting Toprol-XL 50 mg now amiodarone and Eliquis. Will get repeat EKG after his Toprol dosing to see if he still in A. fib. Overall he feels improved from prior to his cardioversion. Vitals/I&O Vitals/I&O: Vital Signs Date Time Temp Pulse Resp B/P (MAP) Pulse Ox O2 Delivery O2 Flow Rate FiO2 06/04/21 10:35 97.7 90 20 93/74 (80) 95 Room Air 97.7 06/04/21 08:00 4.0 I & O 06/03/21 06/03/21 06/04/21 15:00 23:00 07:00 Intake Total 230 ml 400 ml Output Total 0 ml 250 ml Balance 230 ml 150 ml Physical Exam General: Alert, Oriented X3, Cooperative, mild distress Heart: Other Lungs: Wheezing Abdomen: Soft Extremities: Other Skin: No significant lesion Comment Review of Relevant I have reviewed the following items jesse (where applicable) has been applied. Medications: Current Medications Medications (Trade) Dose Ordered Sig/Handy Route PRN Reason Start Time Stop Time Status Last Admin Dose Admin Amiodarone HCl (Cordarone) 200 mg DAILY PO 06/03/21 12:00 06/04/21 08:36 Apixaban (Eliquis) 5 mg BID PO 06/03/21 12:00 06/04/21 08:34 Metoprolol Tartrate (Lopressor) 50 mg DAILY PO 06/03/21 13:00 06/04/21 11:02 DC 06/04/21 08:35 Justifications for Admission Other Justification CLEMENTE BECKWITH MD Jun 04, 2021 11:18
--- NOTE | 2021-06-04 11:42 | PDOC ---
PULMONARY PROGRESS NOTES DATE: 06/04/21 TIME: 11:38 Subjective patient sitting at the edge of the bed. he is currently on RA trial and sats are greater than 90%. denies shortness of breath. Vitals Vital Signs Date Time Temp Pulse Resp B/P (MAP) Pulse Ox O2 Delivery O2 Flow Rate FiO2 06/04/21 10:35 97.7 90 20 93/74 (80) 95 Room Air 97.7 06/04/21 08:00 4.0 ROS: No Nausea, No Chest Pain, No Abdominal Pain, No Increase Cough Lungs: Wheezing Cardiovascular: S1 Abdomen: Soft, Non-tender Neuro Exam: Alert Extremities: No Edema Skin: Warm Labs Laboratory Tests Test 06/02/21 13:50 06/02/21 20:30 06/03/21 03:50 06/03/21 09:40 Body Fluid pH 7.55 Body Fluid Glucose 130 mg/dL (.) Body Fluid Total Protein 1.5 g/dL (.) Body Fluid Lactate Dehydrogenase 78 IU/L (.) Heparin Anti-Xa Act, Unfractionated 0.21 IU/mL (0.30-0.70) 0.32 IU/mL (0.30-0.70) 0.37 IU/mL (0.30-0.70) White Blood Count 8.0 x10^3/uL (4.0-11.0) Red Blood Count 4.45 x10^6/uL (4.30-5.70) Hemoglobin 14.4 g/dL (13.0-17.5) Hematocrit 43.7 % (39.0-53.0) Mean Corpuscular Volume 98 fL (79-100) Mean Corpuscular Hemoglobin 32 pg (25-35) Mean Corpuscular Hemoglobin Concent 33 g/dL (31-37) Red Cell Distribution Width 14.1 % (11.5-14.5) Platelet Count 118 x10^3/uL (140-400) Neutrophils (%) (Auto) 75 % (31-73) Lymphocytes (%) (Auto) 11 % (24-48) Monocytes (%) (Auto) 14 % (0-9) Eosinophils (%) (Auto) 1 % (0-3) Basophils (%) (Auto) 1 % (0-3) Neutrophils # (Auto) 6.0 x10^3/uL (1.8-7.7) Lymphocytes # (Auto) 0.8 x10^3/uL (1.0-4.8) Monocytes # (Auto) 1.1 x10^3/uL (0.0-1.1) Eosinophils # (Auto) 0.0 x10^3/uL (0.0-0.7) Basophils # (Auto) 0.0 x10^3/uL (0.0-0.2) Sodium Level 136 mmol/L (136-145) Potassium Level 3.5 mmol/L (3.5-5.1) Chloride Level 105 mmol/L (98-107) Carbon Dioxide Level 26 mmol/L (21-32) Anion Gap 5 (6-14) Blood Urea Nitrogen 15 mg/dL (8-26) Creatinine 0.8 mg/dL (0.7-1.3) Estimated GFR (Cockcroft-Gault) 97.0 BUN/Creatinine Ratio 19 (6-20) Glucose Level 123 mg/dL (70-99) Calcium Level 7.5 mg/dL (8.5-10.1) Total Bilirubin 1.9 mg/dL (0.2-1.0) Aspartate Amino Transf (AST/SGOT) 33 U/L (15-37) Alanine Aminotransferase (ALT/SGPT) 59 U/L (16-63) Alkaline Phosphatase 85 U/L (46-116) Total Protein 6.0 g/dL (6.4-8.2) Albumin 2.9 g/dL (3.4-5.0) Albumin/Globulin Ratio 0.9 (1.0-1.7) Impression . IMPRESSION: 1. Acute hypoxemic respiratory failure, multifactorial. 2. Acute exacerbation of chronic obstructive pulmonary disease. 3. Atrial fibrillation with rapid ventricular response. Status post cardioversion 4. Acute, suspected, diastolic heart failure. Combination with systolic heart failure 5. Abnormal CT chest, revealing several findings as indicated above. 6. Linear triangular parenchymal density in the right upper lobe. 7. Multiple pulmonary nodules. 8. Adenopathy in the mediastinum, left lower neck and axilla, patient with previous history of lymphoma. 9. Abnormal liver function tests. 10. Transudate of effusion <Conclusion> The left ventricular systolic function is moderately diminished. The ejection fraction is 35%. Mild mitral regurgitation. Mild tricuspid regurgitation. There is no evidence of significant pericardial effusion. No intracardiac thrombus noted. Patient subsequently underwent successful external cardioversion, reported separately. Conclusions: Successful [facility] guided cardioversion of atrial fibrillation to sinus rhythm. Plan . 06/04 cardiology recommendations appreciated patient continues with PAF, rate better controlled therapy as [facility] follow up CT as outpatient 2-3 months Updated 06/03 Appreciate cardiology input Transudate of effusion, diuresis per cardiology Repeat CT chest in 2 to 3 months Continue empiric antibiotics and steroids DC tobacco or marijuana marijuana KARYNA BURT MD Jun 04, 2021 11:42
[2021-06-04 15:00] VITALS: BP 99/79
--- NOTE | 2021-06-04 16:38 | PDOC ---
PROGRESS NOTES Date of Service DATE: 06/04/21 TIME: 16:34 Subjective Subjective Patient seen and examined Objective Objective Vital Signs Date Time Temp Pulse Resp B/P (MAP) Pulse Ox O2 Delivery O2 Flow Rate FiO2 06/04/21 15:00 97.9 128 18 99/79 (86) 92 Room Air 97.9 06/04/21 08:00 4.0 Intake and Output 06/04/21 07:00 Intake Total 630 ml Output Total 250 ml Balance 380 ml Intake Oral 630 ml Output Urine Total 250 ml Estimated Blood Loss 0 ml # Voids 1 # Bowel Movements 1 Physical Exam Abdomen: Normal bowel sounds Heart: Other General: No acute distress (Irregularly irregular) Lungs: Other (Slightly decreased breath sounds) Assessment Assessment New onset AFIB with RVR; had been on metoprolol and digoxin for rate control. Cardioverted to sinus rhythm yesterday. However he converted back to atrial fibrillation this morning. We will continue on Eliquis and amiodarone 20 mg a day. On metoprolol succinate 50 mg p.o. daily but may need to taper this up based on its effect on his rate. Continue to monitor. Home possibly later today or tomorrow. If continued difficulty with rate control will consider adding daily digoxin. Acute on chronic systolic CHF; improved with diuresis. Cardiac catheterization yesterday showed no significant coronary artery disease and intact LV systolic function. Continuing present treatment. Acute respiratory failure; multifactorial with a/c CHF, AFIB with RVR, pleural effusion, and AECOPD. Hypertension; controlled H/o lymphoma; s/p chemo/radiation Abnormal CTA; evidence of PE, right lung nodule. as per pulmonary Elevated LFT's, mild Thrombocytopenia ETOH misuse Suspected COPD with long-standing h/o tobaccoism Comment Review of Relevant I have reviewed the following items jesse (where applicable) has been applied. Labs Laboratory Tests Test 06/02/21 20:30 06/03/21 03:50 06/03/21 09:40 Heparin Anti-Xa Act, Unfractionated 0.21 IU/mL (0.30-0.70) 0.32 IU/mL (0.30-0.70) 0.37 IU/mL (0.30-0.70) White Blood Count 8.0 x10^3/uL (4.0-11.0) Red Blood Count 4.45 x10^6/uL (4.30-5.70) Hemoglobin 14.4 g/dL (13.0-17.5) Hematocrit 43.7 % (39.0-53.0) Mean Corpuscular Volume 98 fL (79-100) Mean Corpuscular Hemoglobin 32 pg (25-35) Mean Corpuscular Hemoglobin Concent 33 g/dL (31-37) Red Cell Distribution Width 14.1 % (11.5-14.5) Platelet Count 118 x10^3/uL (140-400) Neutrophils (%) (Auto) 75 % (31-73) Lymphocytes (%) (Auto) 11 % (24-48) Monocytes (%) (Auto) 14 % (0-9) Eosinophils (%) (Auto) 1 % (0-3) Basophils (%) (Auto) 1 % (0-3) Neutrophils # (Auto) 6.0 x10^3/uL (1.8-7.7) Lymphocytes # (Auto) 0.8 x10^3/uL (1.0-4.8) Monocytes # (Auto) 1.1 x10^3/uL (0.0-1.1) Eosinophils # (Auto) 0.0 x10^3/uL (0.0-0.7) Basophils # (Auto) 0.0 x10^3/uL (0.0-0.2) Sodium Level 136 mmol/L (136-145) Potassium Level 3.5 mmol/L (3.5-5.1) Chloride Level 105 mmol/L (98-107) Carbon Dioxide Level 26 mmol/L (21-32) Anion Gap 5 (6-14) Blood Urea Nitrogen 15 mg/dL (8-26) Creatinine 0.8 mg/dL (0.7-1.3) Estimated GFR (Cockcroft-Gault) 97.0 BUN/Creatinine Ratio 19 (6-20) Glucose Level 123 mg/dL (70-99) Calcium Level 7.5 mg/dL (8.5-10.1) Total Bilirubin 1.9 mg/dL (0.2-1.0) Aspartate Amino Transf (AST/SGOT) 33 U/L (15-37) Alanine Aminotransferase (ALT/SGPT) 59 U/L (16-63) Alkaline Phosphatase 85 U/L (46-116) Total Protein 6.0 g/dL (6.4-8.2) Albumin 2.9 g/dL (3.4-5.0) Albumin/Globulin Ratio 0.9 (1.0-1.7) Microbiology 06/02/21 Gram Stain - Final, Resulted 06/02/21 Aerobic and Anaerobic Culture - Preliminary, Resulted Medications Current Medications Metoprolol Tartrate (Lopressor Vial) 5 mg PRN Q5MIN PRN IVP TACHYCARDIA Last administered on 06/04/21at 06:03; Start 05/31/21 at 21:45 Digoxin (Lanoxin) 250 mcg 1X ONCE IV Last administered on 05/31/21at 23:07; Start 05/31/21 at 23:00; Stop 05/31/21 at 23:01; Status DC Digoxin (Lanoxin) 125 mcg DAILY PO Last administered on 06/04/21at 06:03; Start 06/01/21 at 09:00 Enoxaparin Sodium (Lovenox Per Pharmacy Treatment Dosing) 1 each PRN DAILY PRN MC SEE COMMENTS; Start 05/31/21 at 21:45; Status Cancel Nicotine (Nicoderm Cq 21mg) 1 patch PRN DAILY PRN TD SMOKING CESSATION; Start 05/31/21 at 21:45 Magnesium Sulfate 100 ml @ 25 mls/hr 1X ONCE IV Last administered on 05/31/21at 23:44; Start 05/31/21 at 23:00; Stop 06/01/21 at 02:59; Status DC Potassium Chloride (Klor-Con) 40 meq 1X ONCE PO Last administered on 05/31/21at 23:05; Start 05/31/21 at 23:00; Stop 05/31/21 at 23:01; Status DC Diltiazem HCl 125 mg/Sodium Chloride 125 ml @ 5 mls/hr CONT PRN IV PER PROTOCOL Last administered on 06/01/21at 08:28; Start 05/31/21 at 22:00; Stop 06/01/21 at 09:05; Status DC Thiamine HCl 100 mg/Dextrose 51 ml @ 102 mls/hr 1X ONCE IV Last administered on 05/31/21at 23:56; Start 05/31/21 at 23:00; Stop 05/31/21 at 23:29; Status DC Vitamin B Complex (Folbic Tablet) 1 tab DAILY PO Last administered on 06/04/21at 08:34; Start 06/01/21 at 09:00 Ascorbic Acid (Vitamin C) 1,000 mg DAILY PO Last administered on 06/04/21at 08:34; Start 06/01/21 at 09:00 Lorazepam (Ativan Inj) 2 mg PRN Q1HR PRN IV For CIWA 8-14; Start 05/31/21 at 22:15 Lorazepam (Ativan Inj) 4 mg PRN Q1HR PRN IV For CIWA 15 or greater; Start 05/31/21 at 22:15 Sodium Chloride 500 ml @ 500 mls/hr 1X ONCE IV Last administered on 05/31/21at 23:00; Start 05/31/21 at 23:00; Stop 05/31/21 at 23:59; Status DC Enoxaparin Sodium (Lovenox 80mg Syringe) 80 mg Q12HR SQ Last administered on 06/01/21at 07:56; Start 06/01/21 at 00:00; Stop 06/01/21 at 15:28; Status DC Info (Anti-Coagulation Monitoring By Pharmacy) 1 each PRN DAILY PRN MC PER PROTOCOL Last administered on 06/01/21at 01:18; Start 05/31/21 at 23:15 Influenza Virus Vaccine Quadrival (Flulaval Quad [id number] Syringe) 0.5 ml ONCE ONCE VAX IM ; Start 06/01/21 at 09:00; Stop 06/01/21 at 09:01; Status DC Metoprolol Tartrate (Lopressor) 25 mg BID PO Last administered on 06/02/21at 07:40; Start 06/01/21 at 10:00; Stop 06/02/21 at 13:05; Status DC Metoprolol Tartrate (Lopressor Vial) 5 mg 1X ONCE IVP Last administered on 06/01/21at 13:03; Start 06/01/21 at 13:00; Stop 06/01/21 at 13:01; Status DC Furosemide (Lasix) 40 mg 1X ONCE IVP Last administered on 06/01/21at 13:02; Start 06/01/21 at 13:00; Stop 06/01/21 at 13:01; Status DC Heparin Sodium/ Dextrose 250 ml @ 13.248 mls/ hr CONT PRN IV PER PROTOCOL Last administered on 06/03/21at 06:30; Start 06/01/21 at 15:30; Stop 06/03/21 at 11:27; Status DC Heparin Sodium (Porcine) (Heparin Sodium) 2,500 unit PRN Q6HRS PRN IV FOR UFH LEVEL LESS THAN 0.2; Start 06/01/21 at 15:30; Stop 06/03/21 at 11:27; Status DC Heparin Sodium (Porcine) (Heparin Sodium) 1,250 unit PRN Q6HRS PRN IV FOR UFH LEVEL 0.2 - 0.29 Last administered on 06/02/21at 21:20; Start 06/01/21 at 15:30; Stop 06/03/21 at 11:27; Status DC Digoxin (Lanoxin) 250 mcg 1X ONCE IV Last administered on 06/02/21at 10:56; Start 06/02/21 at 11:00; Stop 06/02/21 at 11:01; Status DC Amiodarone HCl 150 mg/Dextrose 103 ml @ 600 mls/hr 1X ONCE IV Last administered on 06/02/21at 14:35; Start 06/02/21 at 13:00; Stop 06/02/21 at 13:17; Status DC Amiodarone HCl 450 mg/Dextrose 259 ml @ 0 mls/hr CONT PRN IV SEE I/O RECORD Last administered on 06/02/21at 22:13; Start 06/02/21 at 13:00; Stop 06/03/21 at 12:59; Status DC Sodium Chloride (Normal Saline Flush) 10 ml QSHIFT PRN IV AFTER MEDS AND BLOOD DRAWS; Start 06/02/21 at 13:00 Lidocaine HCl (Xylocaine 2% Topical 5gm Tube) 1 paulie 1X ONCE TP ; Start 06/02/21 at 13:00; Stop 06/02/21 at 13:01; Status Cancel Lidocaine HCl (Viscous Lidocaine) 15 ml 1X ONCE MM ; Start 06/02/21 at 13:00; Stop 06/02/21 at 13:01; Status Cancel Benzocaine (Hurricaine One) 2 spray 1X ONCE MM ; Start 06/02/21 at 13:00; Stop 06/02/21 at 13:01; Status Cancel Metoprolol Tartrate (Lopressor) 50 mg BID PO Last administered on 06/02/21at 2 1:00; Start 06/02/21 at 21:00; Stop 06/02/21 at 21:01; Status DC Metoprolol Succinate (Toprol Xl) 100 mg DAILY PO ; Start 06/03/21 at 09:00; Stop 06/03/21 at 12:23; Status DC Losartan Potassium (Cozaar) 25 mg DAILY PO Last administered on 06/04/21at 08:36; Start 06/02/21 at 14:00 Furosemide (Lasix) 40 mg DAILY PO Last administered on 06/04/21at 08:34; Start 06/02/21 at 14:00 Fentanyl Citrate (Fentanyl 2ml Vial) 25 mcg PRN Q5MIN PRN IVP MILD PAIN 1-3; Start 06/03/21 at 06:00; Stop 06/04/21 at 05:59; Status DC Fentanyl Citrate (Fentanyl 2ml Vial) 50 mcg PRN Q5MIN PRN IVP MODERATE PAIN 4- 6; Start 06/03/21 at 06:00; Stop 06/04/21 at 05:59; Status DC Morphine Sulfate (Morphine Sulfate) 1 mg PRN Q10MIN PRN IVP SEVERE PAIN 7-10; Start 06/03/21 at 06:00; Stop 06/04/21 at 05:59; Status DC Ringer's Solution 1,000 ml @ 30 mls/hr Q24H IV ; Start 06/03/21 at 06:00; Stop 06/03/21 at 17:59; Status DC Hydromorphone HCl (Dilaudid) 0.5 mg PRN Q10MIN PRN IVP SEVERE PAIN 7-10, 2nd CHOICE; Start 06/03/21 at 06:00; Stop 06/04/21 at 05:59; Status DC Prochlorperazine Edisylate (Compazine) 5 mg PACU PRN PRN IVP NAUSEA, MRX1; Start 06/03/21 at 06:00; Stop 06/04/21 at 05:59; Status DC Lidocaine HCl (Xylocaine 2% Topical 5gm Tube) 1 paulie 1X ONCE TP Last administered on 06/03/21at 10:40; Start 06/03/21 at 11:00; Stop 06/03/21 at 11:01; Status DC Lidocaine HCl (Viscous Lidocaine) 15 ml 1X ONCE MM ; Start 06/03/21 at 11:00; Stop 06/03/21 at 11:01; Status DC Benzocaine (Hurricaine One) 2 spray 1X ONCE MM ; Start 06/03/21 at 11:00; Stop 06/03/21 at 11:01; Status DC Sodium Chloride 500 ml @ 500 mls/hr 1X ONCE IV Last administered on 06/03/21at 02:03; Start 06/03/21 at 02:00; Stop 06/03/21 at 02:59; Status DC Dopamine HCl/ Dextrose 250 ml @ 15.244 mls/ hr CONT PRN IV SEE I/O RECORD Last administered on 06/03/21at 06:21; Start 06/03/21 at 02:30 Lidocaine HCl (Xylocaine-Mpf 1% 2ml Vial) 2 ml STK-MED ONCE .ROUTE ; Start 06/03/21 at 07:36; Stop 06/03/21 at 07:36; Status DC Iohexol (Omnipaque 300 Mg/ml) 100 ml STK-MED ONCE .ROUTE ; Start 06/03/21 at 07:36; Stop 06/03/21 at 07:36; Status DC Heparin Sodium/ Sodium Chloride 1,000 ml @ As Directed STK-MED ONCE .ROUTE ; Start 06/03/21 at 07:36; Stop 06/03/21 at 07:37; Status DC Fentanyl Citrate (Fentanyl 2ml Vial) 100 mcg STK-MED ONCE .ROUTE ; Start 06/03/21 at 09:43; Stop 06/03/21 at 09:43; Status DC Midazolam HCl (Versed) 2 mg STK-MED ONCE .ROUTE ; Start 06/03/21 at 09:43; Stop 06/03/21 at 09:43; Status DC Heparin Sodium (Porcine) (Heparin Sodium) 10,000 unit STK-MED ONCE .ROUTE ; Start 06/03/21 at 09:43; Stop 06/03/21 at 09:43; Status DC Verapamil HCl (Verapamil) 5 mg STK-MED ONCE .ROUTE ; Start 06/03/21 at 09:43; Stop 06/03/21 at 09:43; Status DC Nitroglycerin (Nitroglycerin) 200 mcg STK-MED ONCE .ROUTE ; Start 06/03/21 at 09:43; Stop 06/03/21 at 09:43; Status DC Benzocaine (Hurricaine One) 1 spray STK-MED ONCE .ROUTE ; Start 06/03/21 at 10:37; Stop 06/03/21 at 10:37; Status DC Nitroglycerin (Nitroglycerin) 200 mcg 1X ONCE IART Last administered on 06/03/21 10:15; Start 06/03/21 at 10:45; Stop 06/03/21 at 10:51; Status DC Verapamil HCl (Verapamil) 2.5 mg 1X ONCE IART Last administered on 06/03/21 10:15; Start 06/03/21 at 10:45; Stop 06/03/21 at 10:51; Status DC Heparin Sodium (Porcine) (Heparin Sodium) 2,500 unit 1X ONCE IART Last administered on 06/03/21 10:15; Start 06/03/21 at 10:45; Stop 06/03/21 at 10:51; Status DC Heparin Sodium/ Sodium Chloride (HEPARIN for ARTERIAL LINE FLUSH) 1,000 unit 1X ONCE IART Last administered on 06/03/21 10:30; Start 06/03/21 at 10:45; Stop 06/03/21 at 10:51; Status DC Midazolam HCl (Versed) 2 mg 1X ONCE IV Last administered on 06/03/21 10:15; Start 06/03/21 at 10:45; Stop 06/03/21 at 10:51; Status DC Fentanyl Citrate (Fentanyl 2ml Vial) 50 mcg 1X ONCE IV Last administered on 06/03/21 10:15; Start 06/03/21 at 10:45; Stop 06/03/21 at 10:51; Status DC Iohexol (Omnipaque 300 Mg/ml) 62 ml 1X ONCE IART Last administered on 06/03/21 10:35; Start 06/03/21 at 10:45; Stop 06/03/21 at 10:51; Status DC Lidocaine HCl (Xylocaine-Mpf 1% 2ml Vial) 1 ml 1X ONCE INJ Last administered on 06/03/21 10:15; Start 06/03/21 at 10:45; Stop 06/03/21 at 10:51; Status DC Benzocaine (Hurricaine One) 1 spray 1X ONCE MM Last administered on 06/03/21at 10:40; Start 06/03/21 at 10:45; Stop 06/03/21 at 10:47; Status DC Info (CONTRAST GIVEN -- Rx MONITORING) 1 each PRN DAILY PRN MC SEE COMMENTS; Start 06/03/21 at 11:00; Stop 06/05/21 at 10:59 Amiodarone HCl (Cordarone) 200 mg DAILY PO Last administered on 06/04/21at 08:36; Start 06/03/21 at 12:00 Apixaban (Eliquis) 5 mg BID PO Last administered on 06/04/21at 08:34; Start 06/03/21 at 12:00 Metoprolol Tartrate (Lopressor) 50 mg DAILY PO Last administered on 06/04/21at 08:35; Start 06/03/21 at 13:00; Stop 06/04/21 at 11:02; Status DC Metoprolol Succinate (Toprol Xl) 50 mg DAILY PO Last administered on 06/04/21at 11:53; Start 06/04/21 at 11:00 Vitals/I & O Vital Sign - Last 24 Hours 06/03/21 06/03/21 06/03/21 06/04/21 19:02 19:51 22:02 03:10 Temp 98.3 99.2 98.0 98.3 99.2 98.0 Pulse 81 92 83 Resp 18 18 18 B/P (MAP) 111/82 (92) 93/64 (74) 97/66 (76) Pulse Ox 97 97 96 O2 Delivery Nasal Cannula Nasal Cannula Nasal Cannula Nasal Cannula O2 Flow Rate 4.0 4.0 4.0 4.0 06/04/21 06/04/21 06/04/21 06/04/21 06:03 06:03 07:00 08:00 Temp 98.2 98.2 Pulse 140 140 103 Resp 18 B/P (MAP) 113/70 113/70 106/94 (98) Pulse Ox 97 O2 Delivery Nasal Cannula Nasal Cannula O2 Flow Rate 4.0 4.0 06/04/21 06/04/21 06/04/21 06/04/21 08:35 08:36 08:36 10:35 Temp 97.7 97.7 Pulse 126 126 126 90 Resp 20 B/P (MAP) 106/94 106/94 106/94 93/74 (80) Pulse Ox 95 O2 Delivery Room Air 06/04/21 06/04/21 11:53 15:00 Temp 97.9 97.9 Pulse 101 128 Resp 18 B/P (MAP) 93/74 99/79 (86) Pulse Ox 92 O2 Delivery Room Air Intake and Output 06/03/21 06/03/21 06/04/21 15:00 23:00 07:00 Intake Total 230 ml 400 ml Output Total 0 ml 250 ml Balance 230 ml 150 ml Justifications for Admission Other Justification TODD DOUGHERTY MD Jun 04, 2021 16:38
[2021-06-04 19:45] VITALS: BP 90/74
[2021-06-04 22:40] VITALS: BP 104/86
[2021-06-05 03:15] VITALS: BP 118/90
[2021-06-05 07:00] VITALS: BP 121/94
--- NOTE | 2021-06-05 08:08 | PDOC ---
[employer] PROGRESS NOTE Date of Service DOS: DATE: 06/05/21 TIME: 08:08 Chief Complaint Chief Complaint Acute hypoxic respiratory failure Acute diastolic CHF Atrial fibrillation with RVR, cardizem gtt, stil tachy, will add Metoprolol IV and IV dig, po now Acute/chronic? pulmonary embolism, Lovenox tx started at [facility] Pleural effusion - IR consulted for thoracentesis, would prefer holding therapeutic anticoagulation for treatment replete K+ and Mag tobacco use disorder, patch is PRN Alcohol overuse, vitamins given Thrombocytopenia History of Present Illness History of Present Illness Mr Paredes is a 66 yo male w/ PMHx lymphoma s/o chemo, radiation who presented to [facility] in [place], [place] c/o persistent cough and development of LE edema. Reports associated orthopnea for the last 2 weeks. He noted seeing his right neck veins fluttering which concerned him and was noted in AFIB with RVR. Underwent CTPA concerning for right pleural effusion and acute possibly chronic pulmonary embolism nonocclusive right basilar pulmonary artery and mediastinal adenopathy and left lower neck and axilla as well as bilateral emphysema and 3 x 3 x 1 cm right apical density as well as small basilar nodules 4 mm and a 1 cm T11 thoracic vertebral potential lytic lesion and right upper quadrant free fluid. No clear signs of right heart strain. No prior h/o AFIB. Does have history of lymphoma and has underwent chemo and radiation therapy. Was given therapeutic Lovenox replace magnesium and transferred to [facility] for further care and pulmonology and cardiology consultation. 2/2: Seen bedside is dyspneic and tachycardic. Was transitioned off diltiazem gtt. to oral metoprolol and oral digoxin. Discussed with interventional radiology they would prefer to delay thoracentesis on right due to recent therapeutic Lovenox administration. Patient is wondering when he will be able to go home but notes he is very dyspneic with minimal exertion. 2/3: Overnight became more tachycardic. Still feeling short of breath. Orthopnea. On heparin gtt. 1.5L thoracentesis today. 5 metoprolol x1 now 2/4: [place] relief after throat thoracentesis for several hours but when he laid down became tachy and hypotensive now on dopamine gtt. started on amiodarone. To [facility] for cardioversion 06/04: Sinus overnight. Had paroxysmal coughing fit this morning and a rapid heart rate back in afbi in the 150s given IV metoprolol and digoxin now in the 90s 100s looks like he is going in and out of A. fib. Toprol was changed yesterday getting Toprol-XL 50 mg now amiodarone and Eliquis. Overall he feels improved from prior to his cardioversion. 06/05: Patient back in atrial fibrillation the 150s in the evening stay in the hospital. Plan to increase by 200 mg of metoprolol XL and amiodarone digoxin and return in a few weeks for repeat cardioversion. Will titrate up to 75 mg Toprol-XL today and continue to increase with plan to discharge tomorrow if heart rate remains less than 100. Vitals/I&O Vitals/I&O: Vital Signs Date Time Temp Pulse Resp B/P (MAP) Pulse Ox O2 Delivery O2 Flow Rate FiO2 06/05/21 03:15 97.8 107 18 118/90 (99) 92 Room Air 97.8 06/04/21 08:00 4.0 I & O 06/04/21 06/04/21 06/05/21 15:00 23:00 07:00 Intake Total 300 ml Balance 300 ml Physical Exam General: No acute distress (Irregularly irregular) Heart: Other Lungs: Wheezing Abdomen: Normal bowel sounds Extremities: Other Skin: No significant lesion Comment Review of Relevant I have reviewed the following items jesse (where applicable) has been applied. Medications: Current Medications Medications (Trade) Dose Ordered Sig/Handy Route PRN Reason Start Time Stop Time Status Last Admin Dose Admin Metoprolol Succinate (Toprol Xl) 50 mg DAILY PO 06/04/21 11:00 06/04/21 11:53 Justifications for Admission Other Justification CLEMENTE BECKWITH MD Jun 05, 2021 08:08
[2021-06-05] MEDS: APIXABAN 5 MG TABLET. PO SCH ×2 (08:44→18:59)
[2021-06-05] MEDS: ASCORBIC ACID 1,000 MG TABLET PO SCH (08:44)
[2021-06-05] MEDS: VITAMIN B12,B9,B6 COMPLEX 1 TABLET. PO SCH (08:44)
[2021-06-05] MEDS: FUROSEMIDE 40 MG TABLET. PO SCH (08:45)
[2021-06-05] MEDS: LOSARTAN POTASSIUM 25 MG TABLET. PO SCH (08:45)
[2021-06-05] MEDS: AMIODARONE HCL 200 MG TABLET. PO SCH (08:46)
[2021-06-05] MEDS: METOPROLOL SUCC 24HR ER 100 MG TAB.ER.24H. PO SCH (08:46)
[2021-06-05] MEDS: DIGOXIN 125 MCG TABLET. PO SCH (08:46)
--- NOTE | 2021-06-05 10:58 | PDOC ---
PULMONARY PROGRESS NOTES DATE: 06/05/21 TIME: 10:57 Subjective patient resting in bed. monitor still shows irregular rhythm, rate controlled. on room air. denies cough Vitals Vital Signs Date Time Temp Pulse Resp B/P (MAP) Pulse Ox O2 Delivery O2 Flow Rate FiO2 06/05/21 08:46 107 118/90 06/05/21 08:00 Room Air 06/05/21 07:00 98.5 18 92 98.5 06/04/21 08:00 4.0 ROS: No Nausea, No Chest Pain, No Abdominal Pain, No Increase Cough Lungs: Wheezing Cardiovascular: S1 Abdomen: Soft, Non-tender Neuro Exam: Alert Extremities: No Edema Skin: Warm Impression . IMPRESSION: 1. Acute hypoxemic respiratory failure, multifactorial. 2. Acute exacerbation of chronic obstructive pulmonary disease. 3. Atrial fibrillation with rapid ventricular response. Status post cardioversion 4. Acute, suspected, diastolic heart failure. Combination with systolic heart failure 5. Abnormal CT chest, revealing several findings as indicated above. 6. Linear triangular parenchymal density in the right upper lobe. 7. Multiple pulmonary nodules. 8. Adenopathy in the mediastinum, left lower neck and axilla, patient with previous history of lymphoma. 9. Abnormal liver function tests. 10. Transudate of effusion <Conclusion> The left ventricular systolic function is moderately diminished. The ejection fraction is 35%. Mild mitral regurgitation. Mild tricuspid regurgitation. There is no evidence of significant pericardial effusion. No intracardiac thrombus noted. Patient subsequently underwent successful external cardioversion, reported separately. Conclusions: Successful [facility] guided cardioversion of atrial fibrillation to sinus rhythm. Plan . 06/05 cardiology recommendations appreciated patient continues with PAF, rate better controlled therapy as vincent follow up CT as outpatient 2-3 months Continue empiric antibiotics and steroids DC tobacco or marijuana marijuana KARYNA BURT MD Jun 05, 2021 10:58
[2021-06-05 11:00] VITALS: BP 110/83
[2021-06-05] MEDS ORDERED: METOPROLOL SUCC 24HR ER 25 MG TAB.ER.24H. PO ONE (12:30)
[2021-06-05 15:00] VITALS: BP 92/68
--- NOTE | 2021-06-05 15:42 | PDOC ---
PROGRESS NOTES Date of Service DATE: 06/05/21 TIME: 15:40 Subjective Subjective Patient seen and examined Objective Objective Vital Signs Date Time Temp Pulse Resp B/P (MAP) Pulse Ox O2 Delivery O2 Flow Rate FiO2 06/05/21 12:30 112 110/83 06/05/21 11:00 97.3 18 93 Room Air 97.3 06/04/21 08:00 4.0 Intake and Output 06/05/21 07:00 Intake Total 300 ml Balance 300 ml Intake Oral 300 ml Physical Exam Abdomen: Normal bowel sounds Heart: Other (Irregularly irregular) General: mild distress Lungs: Other (Mildly decreased breath sounds) Assessment Assessment New onset AFIB with RVR; had been on metoprolol and digoxin for rate control. Cardioverted to sinus rhythm 2 days ago. However he converted back to atrial fibrillation yesterday morning. He is feeling better today. We will continue on amiodarone, digoxin and Eliquis. We will increase the patient's beta- raudel. Plan on discharge tomorrow with office follow-up. Acute on chronic systolic CHF; improved with diuresis. Cardiac catheterization showed no significant coronary artery disease and intact LV systolic function. Continuing present treatment. Acute respiratory failure; multifactorial with a/c CHF, AFIB with RVR, pleural effusion, and AECOPD. Continues to improve. Hypertension; controlled H/o lymphoma; s/p chemo/radiation Abnormal CTA; evidence of PE, right lung nodule. as per pulmonary Elevated LFT's, mild Thrombocytopenia ETOH misuse Suspected COPD with long-standing h/o tobaccoism Comment Review of Relevant I have reviewed the following items jesse (where applicable) has been applied. Labs Microbiology 06/02/21 Gram Stain - Final, Resulted 06/02/21 Aerobic and Anaerobic Culture - Preliminary, Resulted Medications Current Medications Metoprolol Tartrate (Lopressor Vial) 5 mg PRN Q5MIN PRN IVP TACHYCARDIA Last administered on 06/04/21at 06:03; Start 05/31/21 at 21:45 Digoxin (Lanoxin) 250 mcg 1X ONCE IV Last administered on 05/31/21at 23:07; Start 05/31/21 at 23:00; Stop 05/31/21 at 23:01; Status DC Digoxin (Lanoxin) 125 mcg DAILY PO Last administered on 06/05/21at 08:46; Start 06/01/21 at 09:00 Enoxaparin Sodium (Lovenox Per Pharmacy Treatment Dosing) 1 each PRN DAILY PRN MC SEE COMMENTS; Start 05/31/21 at 21:45; Status Cancel Nicotine (Nicoderm Cq 21mg) 1 patch PRN DAILY PRN TD SMOKING CESSATION; Start 05/31/21 at 21:45 Magnesium Sulfate 100 ml @ 25 mls/hr 1X ONCE IV Last administered on 05/31/21at 23:44; Start 05/31/21 at 23:00; Stop 06/01/21 at 02:59; Status DC Potassium Chloride (Klor-Con) 40 meq 1X ONCE PO Last administered on 05/31/21at 23:05; Start 05/31/21 at 23:00; Stop 05/31/21 at 23:01; Status DC Diltiazem HCl 125 mg/Sodium Chloride 125 ml @ 5 mls/hr CONT PRN IV PER PROTOCOL Last administered on 06/01/21at 08:28; Start 05/31/21 at 22:00; Stop 06/01/21 at 09:05; Status DC Thiamine HCl 100 mg/Dextrose 51 ml @ 102 mls/hr 1X ONCE IV Last administered on 05/31/21at 23:56; Start 05/31/21 at 23:00; Stop 05/31/21 at 23:29; Status DC Vitamin B Complex (Folbic Tablet) 1 tab DAILY PO Last administered on 06/05/21at 08:44; Start 06/01/21 at 09:00 Ascorbic Acid (Vitamin C) 1,000 mg DAILY PO Last administered on 06/05/21at 08:44; Start 06/01/21 at 09:00 Lorazepam (Ativan Inj) 2 mg PRN Q1HR PRN IV For CIWA 8-14; Start 05/31/21 at 22:15 Lorazepam (Ativan Inj) 4 mg PRN Q1HR PRN IV For CIWA 15 or greater; Start 05/31/21 at 22:15 Sodium Chloride 500 ml @ 500 mls/hr 1X ONCE IV Last administered on 05/31/21at 23:00; Start 05/31/21 at 23:00; Stop 05/31/21 at 23:59; Status DC Enoxaparin Sodium (Lovenox 80mg Syringe) 80 mg Q12HR SQ Last administered on 06/01/21at 07:56; Start 06/01/21 at 00:00; Stop 06/01/21 at 15:28; Status DC Info (Anti-Coagulation Monitoring By Pharmacy) 1 each PRN DAILY PRN MC PER PROTOCOL Last administered on 06/01/21at 01:18; Start 05/31/21 at 23:15 Influenza Virus Vaccine Quadrival (Flulaval Quad [id number] Syringe) 0.5 ml ONCE ONCE VAX IM ; Start 06/01/21 at 09:00; Stop 06/01/21 at 09:01; Status DC Metoprolol Tartrate (Lopressor) 25 mg BID PO Last administered on 06/02/21at 07:40; Start 06/01/21 at 10:00; Stop 06/02/21 at 13:05; Status DC Metoprolol Tartrate (Lopressor Vial) 5 mg 1X ONCE IVP Last administered on 06/01/21at 13:03; Start 06/01/21 at 13:00; Stop 06/01/21 at 13:01; Status DC Furosemide (Lasix) 40 mg 1X ONCE IVP Last administered on 06/01/21at 13:02; Sta rt 06/01/21 at 13:00; Stop 06/01/21 at 13:01; Status DC Heparin Sodium/ Dextrose 250 ml @ 13.248 mls/ hr CONT PRN IV PER PROTOCOL Last administered on 06/03/21at 06:30; Start 06/01/21 at 15:30; Stop 06/03/21 at 11:27; Status DC Heparin Sodium (Porcine) (Heparin Sodium) 2,500 unit PRN Q6HRS PRN IV FOR UFH LEVEL LESS THAN 0.2; Start 06/01/21 at 15:30; Stop 06/03/21 at 11:27; Status DC Heparin Sodium (Porcine) (Heparin Sodium) 1,250 unit PRN Q6HRS PRN IV FOR UFH LEVEL 0.2 - 0.29 Last administered on 06/02/21at 21:20; Start 06/01/21 at 15:30; Stop 06/03/21 at 11:27; Status DC Digoxin (Lanoxin) 250 mcg 1X ONCE IV Last administered on 06/02/21at 10:56; Start 06/02/21 at 11:00; Stop 06/02/21 at 11:01; Status DC Amiodarone HCl 150 mg/Dextrose 103 ml @ 600 mls/hr 1X ONCE IV Last administered on 06/02/21at 14:35; Start 06/02/21 at 13:00; Stop 06/02/21 at 13:17; Status DC Amiodarone HCl 450 mg/Dextrose 259 ml @ 0 mls/hr CONT PRN IV SEE I/O RECORD Last administered on 06/02/21at 22:13; Start 06/02/21 at 13:00; Stop 06/03/21 at 12 :59; Status DC Sodium Chloride (Normal Saline Flush) 10 ml QSHIFT PRN IV AFTER MEDS AND BLOOD DRAWS; Start 06/02/21 at 13:00 Lidocaine HCl (Xylocaine 2% Topical 5gm Tube) 1 paulie 1X ONCE TP ; Start 06/02/21 at 13:00; Stop 06/02/21 at 13:01; Status Cancel Lidocaine HCl (Viscous Lidocaine) 15 ml 1X ONCE MM ; Start 06/02/21 at 13:00; Stop 06/02/21 at 13:01; Status Cancel Benzocaine (Hurricaine One) 2 spray 1X ONCE MM ; Start 06/02/21 at 13:00; Stop 06/02/21 at 13:01; Status Cancel Metoprolol Tartrate (Lopressor) 50 mg BID PO Last administered on 06/02/21at 21:00; Start 06/02/21 at 21:00; Stop 06/02/21 at 21:01; Status DC Metoprolol Succinate (Toprol Xl) 100 mg DAILY PO ; Start 06/03/21 at 09:00; Stop 06/03/21 at 12:23; Status DC Losartan Potassium (Cozaar) 25 mg DAILY PO Last administered on 06/05/21at 08:45; Start 06/02/21 at 14:00 Furosemide (Lasix) 40 mg DAILY PO Last administered on 06/05/21at 08:45; Start 06/02/21 at 14:00 Fentanyl Citrate (Fentanyl 2ml Vial) 25 mcg PRN Q5MIN PRN IVP MILD PAIN 1-3; Start 06/03/21 at 06:00; Stop 06/04/21 at 05:59; Status DC Fentanyl Citrate (Fentanyl 2ml Vial) 50 mcg PRN Q5MIN PRN IVP MODERATE PAIN 4- 6; Start 06/03/21 at 06:00; Stop 06/04/21 at 05:59; Status DC Morphine Sulfate (Morphine Sulfate) 1 mg PRN Q10MIN PRN IVP SEVERE PAIN 7-10; Start 06/03/21 at 06:00; Stop 06/04/21 at 05:59; Status DC Ringer's Solution 1,000 ml @ 30 mls/hr Q24H IV ; Start 06/03/21 at 06:00; Stop 06/03/21 at 17:59; Status DC Hydromorphone HCl (Dilaudid) 0.5 mg PRN Q10MIN PRN IVP SEVERE PAIN 7-10, 2nd CHOICE; Start 06/03/21 at 06:00; Stop 06/04/21 at 05:59; Status DC Prochlorperazine Edisylate (Compazine) 5 mg PACU PRN PRN IVP NAUSEA, MRX1; Start 06/03/21 at 06:00; Stop 06/04/21 at 05:59; Status DC Lidocaine HCl (Xylocaine 2% Topical 5gm Tube) 1 paulie 1X ONCE TP Last administered on 06/03/21at 10:40; Start 06/03/21 at 11:00; Stop 06/03/21 at 11:01; Status DC Lidocaine HCl (Viscous Lidocaine) 15 ml 1X ONCE MM ; Start 06/03/21 at 11:00; Stop 06/03/21 at 11:01; Status DC Benzocaine (Hurricaine One) 2 spray 1X ONCE MM ; Start 06/03/21 at 11:00; Stop 06/03/21 at 11:01; Status DC Sodium Chloride 500 ml @ 500 mls/hr 1X ONCE IV Last administered on 06/03/21at 02:03; Start 06/03/21 at 02:00; Stop 06/03/21 at 02:59; Status DC Dopamine HCl/ Dextrose 250 ml @ 15.244 mls/ hr CONT PRN IV SEE I/O RECORD Last administered on 06/03/21at 06:21; Start 06/03/21 at 02:30 Lidocaine HCl (Xylocaine-Mpf 1% 2ml Vial) 2 ml STK-MED ONCE .ROUTE ; Start 06/03/21 at 07:36; Stop 06/03/21 at 07:36; Status DC Iohexol (Omnipaque 300 Mg/ml) 100 ml STK-MED ONCE .ROUTE ; Start 06/03/21 at 07:36; Stop 06/03/21 at 07:36; Status DC Heparin Sodium/ Sodium Chloride 1,000 ml @ As Directed STK-MED ONCE .ROUTE ; Start 06/03/21 at 07:36; Stop 06/03/21 at 07:37; Status DC Fentanyl Citrate (Fentanyl 2ml Vial) 100 mcg STK-MED ONCE .ROUTE ; Start 06/03/21 at 09:43; Stop 06/03/21 at 09:43; Status DC Midazolam HCl (Versed) 2 mg STK-MED ONCE .ROUTE ; Start 06/03/21 at 09:43; Stop 06/03/21 at 09:43; Status DC Heparin Sodium (Porcine) (Heparin Sodium) 10,000 unit STK-MED ONCE .ROUTE ; Start 06/03/21 at 09:43; Stop 06/03/21 at 09:43; Status DC Verapamil HCl (Verapamil) 5 mg STK-MED ONCE .ROUTE ; Start 06/03/21 at 09:43; Stop 06/03/21 at 09:43; Status DC Nitroglycerin (Nitroglycerin) 200 mcg STK-MED ONCE .ROUTE ; Start 06/03/21 at 09 :43; Stop 06/03/21 at 09:43; Status DC Benzocaine (Hurricaine One) 1 spray STK-MED ONCE .ROUTE ; Start 06/03/21 at 10:37; Stop 06/03/21 at 10:37; Status DC Nitroglycerin (Nitroglycerin) 200 mcg 1X ONCE IART Last administered on 06/03/21at 10:15; Start 06/03/21 at 10:45; Stop 06/03/21 at 10:51; Status DC Verapamil HCl (Verapamil) 2.5 mg 1X ONCE IART Last administered on 06/03/21at 10:15; Start 06/03/21 at 10:45; Stop 06/03/21 at 10:51; Status DC Heparin Sodium (Porcine) (Heparin Sodium) 2,500 unit 1X ONCE IART Last administered on 06/03/21at 10:15; Start 06/03/21 at 10:45; Stop 06/03/21 at 10:51; Status DC Heparin Sodium/ Sodium Chloride (HEPARIN for ARTERIAL LINE FLUSH) 1,000 unit 1X ONCE IART Last administered on 06/03/21 10:30; Start 06/03/21 at 10:45; Stop 06/03/21 at 10:51; Status DC Midazolam HCl (Versed) 2 mg 1X ONCE IV Last administered on 06/03/21 10:15; Start 06/03/21 at 10:45; Stop 06/03/21 at 10:51; Status DC Fentanyl Citrate (Fentanyl 2ml Vial) 50 mcg 1X ONCE IV Last administered on 06/03/21at 10:15; Start 06/03/21 at 10:45; Stop 06/03/21 at 10:51; Status DC Iohexol (Omnipaque 300 Mg/ml) 62 ml 1X ONCE IART Last administered on 06/03/21 10:35; Start 06/03/21 at 10:45; Stop 06/03/21 at 10:51; Status DC Lidocaine HCl (Xylocaine-Mpf 1% 2ml Vial) 1 ml 1X ONCE INJ Last administered on 06/03/21at 10:15; Start 06/03/21 at 10:45; Stop 06/03/21 at 10:51; Status DC Benzocaine (Hurricaine One) 1 spray 1X ONCE MM Last administered on 06/03/21at 10:40; Start 06/03/21 at 10:45; Stop 06/03/21 at 10:47; Status DC Info (CONTRAST GIVEN -- Rx MONITORING) 1 each PRN DAILY PRN MC SEE COMMENTS; Start 06/03/21 at 11:00; Stop 06/05/21 at 10:59; Status DC Amiodarone HCl (Cordarone) 200 mg DAILY PO Last administered on 06/05/21at 08:46; Start 06/03/21 at 12:00 Apixaban (Eliquis) 5 mg BID PO Last administered on 06/05/21 08:44; Start 06/03/21 at 12:00 Metoprolol Tartrate (Lopressor) 50 mg DAILY PO Last administered on 06/04/21at 08:35; Start 06/03/21 at 13:00; Stop 06/04/21 at 11:02; Status DC Metoprolol Succinate (Toprol Xl) 50 mg DAILY PO Last administered on 06/04/21at 11:53; Start 06/04/21 at 11:00; Stop 06/05/21 at 08:08; Status DC Metoprolol Succinate (Toprol Xl) 100 mg DAILY PO Last administered on 06/05/21at 08:46; Start 06/05/21 at 09:00 Metoprolol Succinate (Toprol Xl) 25 mg 1X ONCE PO Last administered on 06/05/21at 12:30; Start 06/05/21 at 12:30; Stop 06/05/21 at 12:31; Status DC Vitals/I & O Vital Sign - Last 24 Hours 06/04/21 06/04/21 06/04/21 06/05/21 19:45 19:58 22:40 03:15 Temp 98.0 97.6 97.8 98.0 97.6 97.8 Pulse 119 137 107 Resp 20 20 18 B/P (MAP) 90/74 (79) 104/86 (92) 118/90 (99) Pulse Ox 96 97 92 O2 Delivery Room Air Room Air Room Air Room Air 06/05/21 06/05/21 06/05/21 06/05/21 07:00 08:00 08:45 08:46 Temp 98.5 98.5 Pulse 120 107 107 Resp 18 B/P (MAP) 121/94 (103) 118/90 118/90 Pulse Ox 92 O2 Delivery Room Air Room Air 06/05/21 06/05/21 06/05/21 06/05/21 08:46 08:46 11:00 12:30 Temp 97.3 97.3 Pulse 107 107 112 112 Resp 18 B/P (MAP) 118/90 118/90 110/83 (92) 110/83 Pulse Ox 93 O2 Delivery Room Air Intake and Output 06/04/21 06/04/21 06/05/21 15:00 23:00 07:00 Intake Total 300 ml Balance 300 ml Justifications for Admission Other Justification TODD DOUGHERTY MD Jun 05, 2021 15:42
[2021-06-05 19:35] VITALS: BP 99/79
[2021-06-05 23:00] VITALS: BP 107/79
[2021-06-06 03:10] VITALS: BP 116/85
[2021-06-06 07:00] VITALS: BP 117/86
[2021-06-06] MEDS ORDERED: LOSA25TA54 PO (07:44)
[2021-06-06] MEDS ORDERED: APIX5TAB PO (07:44)
[2021-06-06] MEDS ORDERED: METO-247 PO (07:44)
[2021-06-06] MEDS ORDERED: AMIO200T53 PO (07:44)
[2021-06-06] MEDS ORDERED: FURO40TA4 PO (07:44)
--- NOTE | 2021-06-06 07:45 | PDOC ---
[employer] PROGRESS NOTE Date of Service DOS: DATE: 06/06/21 TIME: 07:45 Chief Complaint Chief Complaint Acute hypoxic respiratory failure Acute diastolic CHF Atrial fibrillation with RVR, cardizem gtt, stil tachy, will add Metoprolol IV and IV dig, po now Acute/chronic? pulmonary embolism, Lovenox tx started at [facility] Pleural effusion - IR consulted for thoracentesis, would prefer holding therapeutic anticoagulation for treatment replete K+ and Mag tobacco use disorder, patch is PRN Alcohol overuse, vitamins given Thrombocytopenia History of Present Illness History of Present Illness Mr Paredes is a 66 yo male w/ PMHx lymphoma s/o chemo, radiation who presented to [facility] in [place], [place] c/o persistent cough and development of LE edema. Reports associated orthopnea for the last 2 weeks. He noted seeing his right neck veins fluttering which concerned him and was noted in AFIB with RVR. Underwent CTPA concerning for right pleural effusion and acute possibly chronic pulmonary embolism nonocclusive right basilar pulmonary artery and mediastinal adenopathy and left lower neck and axilla as well as bilateral emphysema and 3 x 3 x 1 cm right apical density as well as small basilar nodules 4 mm and a 1 cm T11 thoracic vertebral potential lytic lesion and right upper quadrant free fluid. No clear signs of right heart strain. No prior h/o AFIB. Does have history of lymphoma and has underwent chemo and radiation therapy. Was given therapeutic Lovenox replace magnesium and transferred to [facility] for further care and pulmonology and cardiology consultation. 2/2: Seen bedside is dyspneic and tachycardic. Was transitioned off diltiazem gtt. to oral metoprolol and oral digoxin. Discussed with interventional radiology they would prefer to delay thoracentesis on right due to recent therapeutic Lovenox administration. Patient is wondering when he will be able to go home but notes he is very dyspneic with minimal exertion. 2/3: Overnight became more tachycardic. Still feeling short of breath. Orthopnea. On heparin gtt. 1.5L thoracentesis today. 5 metoprolol x1 now 2/4: [place] relief after throat thoracentesis for several hours but when he laid down became tachy and hypotensive now on dopamine gtt. started on amiodarone. To [facility] for cardioversion 06/04: Sinus overnight. Had paroxysmal coughing fit this morning and a rapid heart rate back in afbi in the 150s given IV metoprolol and digoxin now in the 90s 100s looks like he is going in and out of A. fib. Toprol was changed yesterday getting Toprol-XL 50 mg now amiodarone and Eliquis. Overall he feels improved from prior to his cardioversion. 06/05: Patient back in atrial fibrillation the 150s in the evening stay in the hospital. Plan to increase by 200 mg of metoprolol XL and amiodarone digoxin and return in a few weeks for repeat cardioversion. Will titrate up to 75 mg Toprol-XL today and continue to increase with plan to discharge tomorrow if heart rate remains less than 100. 06/06: Symptomatically feeling significantly better not on O2 heart rate even on ambulation between 90 and 105. Counseled better heart rate and rhythm control would be important he understands and will schedule for 30-day reevaluation for repeat consideration of cardioversion go home on amiodarone Toprol-XL 100 mg losartan and Eliquis due to cost he may need to transition to warfarin and will do outpatient INRs with his primary care physician in 30 days if that is the case. He will follow-up with pulmonology and follow-up with cardiology Vitals/I&O Vitals/I&O: Vital Signs Date Time Temp Pulse Resp B/P (MAP) Pulse Ox O2 Delivery O2 Flow Rate FiO2 06/06/21 03:10 97.9 88 18 116/85 (95) 96 Room Air 97.9 I & O 06/05/21 06/05/21 06/06/21 15:00 23:00 07:00 Intake Total 0 ml 200 ml Balance 0 ml 200 ml Physical Exam General: mild distress Heart: Other (Irregularly irregular) Lungs: Wheezing Abdomen: Normal bowel sounds Extremities: Other Skin: No significant lesion Comment Review of Relevant I have reviewed the following items jesse (where applicable) has been applied. Medications: Current Medications Medications (Trade) Dose Ordered Sig/Handy Route PRN Reason Start Time Stop Time Status Last Admin Dose Admin Metoprolol Succinate (Toprol Xl) 100 mg DAILY PO 06/05/21 09:00 06/05/21 08:46 Metoprolol Succinate (Toprol Xl) 25 mg 1X ONCE PO 06/05/21 12:30 06/05/21 12:31 DC 06/05/21 12:30 Justifications for Admission Other Justification CLEMENTE BECKWITH MD Jun 06, 2021 07:45
[2021-06-06] MEDS: FUROSEMIDE 40 MG TABLET. PO SCH (08:46)
[2021-06-06] MEDS: APIXABAN 5 MG TABLET. PO SCH (08:46)
[2021-06-06] MEDS: AMIODARONE HCL 200 MG TABLET. PO SCH (08:46)
[2021-06-06] MEDS: ASCORBIC ACID 1,000 MG TABLET PO SCH (08:46)
[2021-06-06] MEDS: VITAMIN B12,B9,B6 COMPLEX 1 TABLET. PO SCH (08:47)
[2021-06-06] MEDS: DIGOXIN 125 MCG TABLET. PO SCH (08:47)
[2021-06-06] MEDS: METOPROLOL SUCC 24HR ER 100 MG TAB.ER.24H. PO SCH (08:47)
[2021-06-06] MEDS: LOSARTAN POTASSIUM 25 MG TABLET. PO SCH (08:47)
[2021-06-06 10:46] VITALS: BP 106/86
--- NOTE | 2021-06-06 11:07 | PATHOLOGY ---
Note [facility] Accession Number: [id number] TESTS RESULT FLAG UNITS REF RANGE LAB Clinician Provided Cytology Information No. of containers..01 Other (Miscellaneous) Source: RIGHT PLEURAL DIAGNOSIS: 02 RIGHT PLEURAL NEGATIVE FOR MALIGNANT CELLS. REACTIVE MESOTHELIAL CELLS ARE PRESENT. THIS INTERPRETATION INCLUDES EVALUATION OF A CELL BLOCK. Signed out by: Mark Grimes MD, Pathologist NPI- [id number] Performed by: Maryam Wells, Search Director ([facility]) Gross description: 01 25ML, YELLOW, CLEAR /LCS 06/03/2021 1646 Local FLAG LEGEND: L-Low Normal,H-High Normal,LL-Alert Low,HH-Alert High <-Panic Low,>-Panic High,A-Abnormal,AA-Critical Abnormal Performed at: [address] [place] [address] William Villatoro MD, 02 [facility] [address] [place] [address] Mark Grimes MD, Specimen Comment: A courtesy copy of this report has been sent to [phone] Specimen Comment: Report sent to DR. DIXON Specimen Comment: Report sent to Specimen Comment: Report sent to Performed at: [address], [place], [place] [id number] MD William Villatoro MD Phone: [phone]
--- NOTE | 2021-06-06 11:23 | NUR ---
SS following up with discharge planning. SS reviewed pt chart and discussed with pt RN. Pt is currently on room air. Probable discharge to home today. Eliquis prescribed. Pt reported that he did not sign up for prescription plan with Medicare. Pt provided with Eliquis 30 day free trial card and co-pay card and pt assistance information. Pt and spouse requesting DPOA paperwork be completed. DPOA paperwork completed and notarized. SS will continue to follow for discharge planning.
--- NOTE | 2021-06-06 11:52 | PDOC ---
PULMONARY PROGRESS NOTES DATE: 06/06/21 TIME: 11:45 Subjective patient resting in bed, family present monitor still shows irregular rhythm, rate controlled. on room air. denies cough Vitals Vital Signs Date Time Temp Pulse Resp B/P (MAP) Pulse Ox O2 Delivery O2 Flow Rate FiO2 06/06/21 10:46 97.7 108 20 106/86 (93) 95 Room Air 97.7 ROS: No Nausea, No Chest Pain, No Abdominal Pain, No Increase Cough Lungs: Wheezing Cardiovascular: S1 Abdomen: Soft, Non-tender Neuro Exam: Alert Extremities: No Edema Skin: Warm Medications Active Scripts Medications Dose Route/Sig Max Daily Dose Days Date Category Furosemide 40 Mg Tablet 40 Mg PO DAILY 30 06/06/21 Rx Losartan Potassium (Losartan Potassium) 25 Mg Tablet 25 Mg PO DAILY 30 06/06/21 Rx Metoprolol Succinate ( Xl ) (Metoprolol Succinate) 100 Mg Tab.er.24h 100 Mg PO DAILY 30 06/06/21 Rx Amiodarone Hcl 200 Mg Tablet 200 Mg PO DAILY 30 06/06/21 Rx Eliquis (Apixaban) 5 Mg Tablet 5 Mg PO BID 30 06/06/21 Rx Impression . IMPRESSION: 1. Acute hypoxemic respiratory failure, multifactorial. 2. Acute exacerbation of chronic obstructive pulmonary disease. 3. Atrial fibrillation with rapid ventricular response. Status post cardioversion 4. Acute, suspected, diastolic heart failure. Combination with systolic heart failure 5. Abnormal CT chest, revealing several findings as indicated above. 6. Linear triangular parenchymal density in the right upper lobe. 7. Multiple pulmonary nodules. 8. Adenopathy in the mediastinum, left lower neck and axilla, patient with previous history of lymphoma. 9. Abnormal liver function tests. 10. Transudate effusion <Conclusion> The left ventricular systolic function is moderately diminished. The ejection fraction is 35%. Mild mitral regurgitation. Mild tricuspid regurgitation. There is no evidence of significant pericardial effusion. No intracardiac thrombus noted. Patient subsequently underwent successful external cardioversion, reported separately. Conclusions: Successful [facility] guided cardioversion of atrial fibrillation to sinus rhythm. Plan . 06/06 patient will discharge home on eliquis follow up with cardiogy as instructed folluw up with CT chest in 2-3 months available pathology negative for malignancy 06/05 cardiology recommendations appreciated patient continues with PAF, rate better controlled therapy as vincent follow up CT as outpatient 2-3 months Continue empiric antibiotics and steroids DC tobacco or marijuana marijuana 06/04 cardiology recommendations appreciated patient continues with PAF, rate better controlled therapy as vincent follow up CT as outpatient 2-3 months Updated 06/03 Appreciate cardiology input Transudate of effusion, diuresis per cardiology Repeat CT chest in 2 to 3 months Continue empiric antibiotics and steroids DC tobacco or marijuana marijuana 2/3 FOLLOW UP ON PLEURAL FLUID CONTINUE THE SAME D/W REPEAT CT IN 3 MO PT IMPROVING PLAN: 1. Recommend thoracentesis. 2. Treat acute exacerbation of COPD with steroids, no need for antibiotics. 3. Nebulized treatments. 4. Follow Cardiology input. 5. Repeat CT chest in 2-3 months. 6. The patient instructed on the importance of discontinuing tobacco use. 7. Discontinue alcohol and marijuana. KARYNA BURT MD Jun 06, 2021 11:52
[2021-06-06] MEDS ORDERED: WARF4TAB64 PO (12:02)
--- NOTE | 2021-06-06 12:13 | PDOC3 ---
Discharge Summary Visit Information Date of Admission: May 31, 2021 Date of Discharge: Jun 06, 2021 Admitting Diagnosis: Palpitations Final Diagnosis Afib with RVR Brief Hospital Course Allergies Allergies Coded Allergies Type Severity Reaction Last Updated Verified No Known Allergies Allergy Unknown 05/31/21 Yes Vital Signs Vital Signs Date Time Temp Pulse Resp B/P (MAP) Pulse Ox O2 Delivery O2 Flow Rate FiO2 06/06/21 10:46 97.7 108 20 106/86 (93) 95 Room Air 97.7 Brief Hospital Course Mr Paredes is a 66 yo male w/ PMHx lymphoma s/o chemo, radiation who presented to [facility] in [place], [place] c/o persistent cough and development of LE edema. Reports associated orthopnea for the last 2 weeks. He noted seeing his right neck veins fluttering which concerned him and was noted in AFIB with RVR. Underwent CTPA concerning for right pleural effusion and acute possibly chronic pulmonary embolism nonocclusive right basilar pulmonary artery and mediastinal adenopathy and left lower neck and axilla as well as bilateral emphysema and 3 x 3 x 1 cm right apical density as well as small basilar nodules 4 mm and a 1 cm T11 thoracic vertebral potential lytic lesion and right upper quadrant free fluid. No clear signs of right heart strain. No prior h/o AFIB. Does have history of lymphoma and has underwent chemo and radiation therapy. Was given therapeutic Lovenox replace magnesium and transferred to [facility] for further care and pulmonology and cardiology consultation. 2/2: Seen bedside is dyspneic and tachycardic. Was transitioned off diltiazem gtt. to oral metoprolol and oral digoxin. Discussed with interventional radiology they would prefer to delay thoracentesis on right due to recent therapeutic Lovenox administration. Patient is wondering when he will be able to go home but notes he is very dyspneic with minimal exertion. 2/3: Overnight became more tachycardic. Still feeling short of breath. Orthopnea. On heparin gtt. 1.5L thoracentesis today. 5 metoprolol x1 now 2/4: [place] relief after throat thoracentesis for several hours but when he laid down became tachy and hypotensive now on dopamine gtt. started on amiodarone. To [facility] for cardioversion 06/04: Sinus overnight. Had paroxysmal coughing fit this morning and a rapid heart rate back in afbi in the 150s given IV metoprolol and digoxin now in the 90s 100s looks like he is going in and out of A. fib. Toprol was changed yesterday getting Toprol-XL 50 mg now amiodarone and Eliquis. Overall he feels improved from prior to his cardioversion. 06/05: Patient back in atrial fibrillation the 150s in the evening stay in the hospital. Plan to increase by 200 mg of metoprolol XL and amiodarone digoxin and return in a few weeks for repeat cardioversion. Will titrate up to 75 mg Toprol-XL today and continue to increase with plan to discharge tomorrow if heart rate remains less than 100. TTE with EF 30%, had thoracentesis with 1.5 L fluid removed and then had subsequent [facility] cardioversion which maintained sinus rhythm for over 12 hours but converted back to atrial fibrillation loaded on amiodarone and changed to p.o. 06/06: Symptomatically feeling significantly better not on O2 heart rate even on a mbulation between 90 and 105. Counseled better heart rate and rhythm control would be important he understands and will schedule for 30-day reevaluation for repeat consideration of cardioversion go home on amiodarone Toprol-XL 100 mg losartan and Eliquis due to cost he may need to transition to warfarin and will do outpatient INRs with his primary care physician in 30 days if that is the case. He will follow-up with pulmonology and follow-up with cardiology Consults: Cardiology and pulmonology Problem list: Acute hypoxic respiratory failure Acute diastolic CHF Atrial fibrillation with RVR, Acute/chronic? pulmonary embolism, Lovenox tx started at [facility] Pleural effusion - IR consulted for thoracentesis, would prefer holding therapeutic anticoagulation for treatment replete K+ and Mag tobacco use disorder, patch is PRN Alcohol overuse, vitamins given Thrombocytopenia Greater than 30 minutes spent on d/c home Discharge Information Condition at Discharge: Improved Follow Up: Weeks (2) Disposition/Orders: D/C to Home Scheduled Amiodarone Hcl (Amiodarone Hcl) 200 Mg Tablet, 200 MG PO DAILY for Afib for 30 Days, #30 Ref 5 Prescribed by: CLEMENTE BECKWITH MD on 06/06/21 0744 Apixaban (Eliquis) 5 Mg Tablet, 5 MG PO BID for Afib for 30 Days, #60 Ref 5 Prescribed by: CLEMENTE BECKWITH MD on 06/06/21 07 Furosemide (Furosemide) 40 Mg Tablet, 40 MG PO DAILY for CHF for 30 Days, #30 Ref 5 Prescribed by: CLEMENTE BECKWITH MD on 06/06/2144 Losartan Potassium (Losartan Potassium ) 25 Mg Tablet, 25 MG PO DAILY for CHF for 30 Days, #30 Ref 5 Prescribed by: CLEMENTE BECKWITH MD on 06/06/2144 Metoprolol Succinate (Metoprolol Succinate ( Xl )) 100 Mg Tab.er.24h, 100 MG PO DAILY for Afib/CHF for 30 Days, #30 Ref 5 Prescribed by: CLEMENTE BECKWITH MD on 06/06/2144 Warfarin Sodium (Warfarin Sodium) 4 Mg Tablet, 4 MG PO DAILY for Afib for 30 Days, #30 Ref 5 Do not take at same time as eliquis! Prescribed by: CLEMENTE BECKWITH MD on 06/06/21 1202 Justicifation of Admission Dx: Justifications for Admission: Justification of Admission Dx: Yes CHF: Cardiac Arrhythmias CLEMENTE BECKWITH MD Jun 06, 2021 12:12
--- NOTE | 2021-06-06 12:31 | PDOC ---
MARLY SINGH [employer]SE[employer] 06/06/21 1231: CARDIO Progress Notes Date and Time Date of Service 06/06/21 Time of Evaluation 1120 Subjective Subjective: No Chest Pain, Other (SOA improved ) Vitals Vitals Vital Signs Date Time Temp Pulse Resp B/P (MAP) Pulse Ox O2 Delivery O2 Flow Rate FiO2 06/06/21 10:46 97.7 108 20 106/86 (93) 95 Room Air 97.7 Weight Weight [ ] Input and Output Intake and Output Intake and Output 06/06/21 07:00 Intake Total 200 ml Balance 200 ml Intake Oral 200 ml Microbiology Micro Microbiology 06/02/21 Gram Stain - Final, Resulted 06/02/21 Aerobic and Anaerobic Culture - Preliminary, Resulted Physical Exam HEENT: Neck Supple W Full Motion Chest: Symmetric LUNGS: Other (diminished ) Heart: irregularly irregular (AFIB, rate near 110) Abdomen: Soft N/T Extremities: Other (1+ bilateral LE edema ) Neurology: alert, oriented, follow commands Assessment Assessment 1. New onset AFIB with RVR; s/p CV. Converted back to AFIB. Rate near 100. 2. Acute on chronic systolic CHF; improved with diuresis. 3. NICM; echo with severe LV dysfunction. EF 30%. LHC without significant CAD 4. Acute respiratory failure; multifactorial with a/c CHF, AFIB with RVR, pleural effusion, and AECOPD. s/p thoracentesis with 1.5L off. 5. Hypertension; controlled 6. H/o lymphoma; s/p chemo/radiation 7. Abnormal CTA; evidence of PE, right lung nodule. as per pulmonary 8. ETOH misuse 9. Suspected COPD with long-standing h/o tobaccoism Recommendations Continue Toprol, Dig for rate control Continue Amiodarone therapy Eliquis for stroke prophylaxis HF optimization therapy Patient to follow up in our office with Dr. Wills as arranged Will re-evaluated LV function in 3 months to assess need for AICD Supportive care Justicifation of Admission Dx: Justifications for Admission: Justification of Admission Dx: Yes CHF: Cardiac Arrhythmias PRAVIN WILLS MD 06/06/21 2530: CARDIO Progress Notes Assessment Assessment Patient seen and examined. Agree with WOOD TYPE FINISHER's assessment and plan. New onset atrial fibrillation s/p successful [facility] guided cardioversion with recurrence of atrial fibrillation Cardiomyopathy, most probably tachycardia mediated, clinically better compensated Continue current medications including amiodarone and Eliquis We will consider repeat cardioversion versus EP referral as an outpatient Plan to repeat 2D echo in 3 months MARLY SINGH APRN Jun 06, 2021 12:31 PRAVIN WILLS MD Jun 06, 2021 16:07
--- NOTE | 2021-06-06 13:44 | NUR ---
Discharge Note: [facility] Discharge instructions and discharge home medications reviewed with Patient and spouse and a copy given. All questions have been answered and understanding verbalized. Pt in stable condition at time of DC. DC'd via wheelchair in private vehicle.
== END 2021-06-06 13:45 | disposition home or self-care (01) | DRG 286 ==
LOC: 6 SOUTH 20:27
PROVIDERS: ADMIT Internal Medicine; ATTEND Internal Medicine
PROC: 0W993ZZ Drainage of Right Pleural Cavity, Percutaneous Approach (ICD-10-PCS; 2021-06-02)
PROC: 4A023N7 Measurement of Cardiac Sampling and Pressure, Left Heart, Percutaneous Approach (ICD-10-PCS; 2021-06-03)
PROC: B24BZZ4 Ultrasonography of Heart with Aorta, Transesophageal (ICD-10-PCS; 2021-06-03)
PROC: B2111ZZ Fluoroscopy of Multiple Coronary Arteries using Low Osmolar Contrast (ICD-10-PCS; 2021-06-03)
PROC: 5A2204Z Restoration of Cardiac Rhythm, Single (ICD-10-PCS; principal; 2021-06-03 11:00)
DX: I11.0 Hypertensive heart disease with heart failure (principal); J96.01 Acute respiratory failure with hypoxia; I26.99 Other pulmonary embolism without acute cor pulmonale; I50.43 Acute on chronic combined systolic (congestive) and diastolic (congestive) heart failure; J44.1 Chronic obstructive pulmonary disease with (acute) exacerbation; I42.8 Other cardiomyopathies; D69.6 Thrombocytopenia, unspecified; F12.90 Cannabis use, unspecified, uncomplicated; F17.210 Nicotine dependence, cigarettes, uncomplicated; I48.91 Unspecified atrial fibrillation; Z79.01 Long term (current) use of anticoagulants; Z82.49 Family history of ischemic heart disease and other diseases of the circulatory system; Z83.3 Family history of diabetes mellitus; Z85.72 Personal history of non-Hodgkin lymphomas; Z92.21 Personal history of antineoplastic chemotherapy; Z92.3 Personal history of irradiation; K21.9 Gastro-esophageal reflux disease without esophagitis; M19.90 Unspecified osteoarthritis, unspecified site; Z79.899 Other long term (current) drug therapy
CPT/HCPCS: 32555; 36415; 80053; 80061; 82945; 83615; 83986; 84157; 84443; 85025; 85520; 85610; 87075; 93306; 93312; 93320; 93458; 99152; 99406; C1894; J0282; J1160; J1265; J1644; J1650; J1940; J2250; J3010; J3411; J3475; J3490; J7040; J7060; Q9967; C8929; G0378

== ENCOUNTER → 2021-07-08 | Day surgery (SDC) | payer MEDICARE ==
[~2021-07-08] VITALS: Ht 180.3 cm; Wt 75.0 kg
[~2021-07-08] MED LIST: AMIO200T53 PO; APIX5TAB PO; DIGO125T3 PO; FURO40TA4 PO; HYDROmorphone 2 MG/ML INJ. IVP PRN; IV RINGERS,LACTATED 1000ML 1,000 ML IV SCH; LIDOCAINE 1% PF 5 ML VIAL. ONE; LOSA25TA54 PO; METO-247 PO; MORPHINE SULFATE 2 MG/ML INJ. IVP PRN; PROCHLORPERAZINE 10 MG/2 ML VIAL. IVP PRN; WARF4TAB64 PO; fentaNYL PF VIAL 100 MCG/2 ML VIAL IVP PRN
[2021-07-08 10:31] VITALS: BP 122/86
[2021-07-08 10:55] LABS: HEMATOCRIT 48.5 % (39.0-53.0); HEMOGLOBIN 15.8 g/dL (13.0-17.5); RED BLOOD COUNT 5.1 x10^6/uL (4.30-5.70); WHITE BLOOD COUNT 6.4 x10^3/uL (4.0-11.0)
--- NOTE | 2021-07-08 10:55 | EKG ---
[facility] [address] [place] [address] Test Date: 2021-07-08 Test Time: 10:54:49 Pat Name: CARLOS CRAMER Department: Room: Gender: Major Sales Associate: : [id number] Requested By: FARRUKH WILLS Order Number: [id number] Reading MD: Farrukh Wills Measurements Intervals [place] Rate: 72 P: 49 [place]: 152 QRS: -26 QRSD: 104 T: 66 QT: 424 QTc: 466 Interpretive Statements SINUS RHYTHM LEFTWARD AXIS INCOMPLETE RIGHT BUNDLE BRANCH BLOCK Electronically Signed On 07-09-2021 18:37:50 CARD DOFFER by Farrukh Wills
[2021-07-08 10:56] LABS: CALCIUM 9.8 mg/dL (8.5-10.1); CREATININE 0.9 mg/dL (0.7-1.3); GFR 84.7; POTASSIUM 4.7 mmol/L (3.5-5.1)
[2021-07-08 10:58] LABS: PROTHROMBIN TIME PATIENT 14.1 SEC (11.7-14.0)
== END | disposition home or self-care (01) ==
LOC: SURG 10:10
PROVIDERS: ATTEND Internal Medicine Cardiovascular Disease
DX: I48.91 Unspecified atrial fibrillation (principal); Z53.8 Procedure and treatment not carried out for other reasons; K21.9 Gastro-esophageal reflux disease without esophagitis; I11.0 Hypertensive heart disease with heart failure; I50.9 Heart failure, unspecified; M19.90 Unspecified osteoarthritis, unspecified site; F17.210 Nicotine dependence, cigarettes, uncomplicated; Z79.899 Other long term (current) drug therapy; Z98.890 Other specified postprocedural states
CPT/HCPCS: 36415; 80048; 85027; 85610; 93005; J3490

== ENCOUNTER → 2021-07-25 | Outpatient (CLI) | payer MEDICARE ==
[2021-07-08 10:31] VITALS: BP 122/86
[~2021-07-25] MED LIST changes: -HYDROmorphone 2 MG/ML INJ. IVP PRN; -IV RINGERS,LACTATED 1000ML 1,000 ML IV SCH; -LIDOCAINE 1% PF 5 ML VIAL. ONE; -MORPHINE SULFATE 2 MG/ML INJ. IVP PRN; -PROCHLORPERAZINE 10 MG/2 ML VIAL. IVP PRN; -fentaNYL PF VIAL 100 MCG/2 ML VIAL IVP PRN
--- NOTE | 2021-07-25 12:19 | CARD ---
MR#: [id number] Date of Study: 07/25/2021 Ordering Physician: PRAVIN WILLS, Referring Physician: PRAVIN WILLS, Tech: APPROVED REPORT PROCEDURE: Successful implantation of Medtronic reveal Linq loop recorder INDICATIONS: Atrial fibrillation management PROCEDURE DETAILS: An informed consent was obtained from patient. Patient was brought to the procedure suite and her le ft chest and shoulder were prepped and draped in the usual fashion. 20 mL of 2% lidocaine was infilt rated into the skin and subcutaneous tissues for local anesthesia. An incision was made in the left third intercostal space 1 inch from midsternal line and using the introducer and the prior provided w ith the kit, a Medtronic reveal Linq loop recorder, serial number [id number] was placed in the subcu taneous tissue. Hemostasis was secured. Patient tolerated the procedure well. There were no immedi ate complications. CONCLUSION: Successful implantation of Medtronic reveal Linq loop recorder for management of atrial fibrillation Signed by : Pravin Wills, Electronically Approved : 07/25/2021 12:19:15
== END | disposition home or self-care (01) ==
LOC: LINQ 11:12
PROVIDERS: ATTEND Internal Medicine Cardiovascular Disease
DX: I48.91 Unspecified atrial fibrillation (principal); I11.0 Hypertensive heart disease with heart failure; I50.9 Heart failure, unspecified; K21.9 Gastro-esophageal reflux disease without esophagitis; M19.90 Unspecified osteoarthritis, unspecified site; F17.210 Nicotine dependence, cigarettes, uncomplicated; Z79.899 Other long term (current) drug therapy; Z98.890 Other specified postprocedural states; Z72.89 Other problems related to lifestyle
CPT/HCPCS: 33285; C1764